=== PATIENT | male | born 1965 | race Caucasian/White ===

== ENCOUNTER 2022-03-04 10:43 | Outpatient (CLI) | payer OTHER, SELFPAY ==
--- NOTE | ~2022-03-04 | XR_ITS ---
XR abdomen/kub 1V 03/04/2022 11:15 Indication: Renal stone Procedure: KUB Comparison: CT dated 03/04/2022 Findings: There are bilateral renal stones, largest in the right renal pelvis. Bowel gas pattern nono bstructive. No definite urolithiasis. No acute osseous abnormality. Impression: 1: Bilateral nephrolithiasis. Reviewed, dictated and finalized at location B. L VALET ATTENDANT Impression: 1: Bilateral nephrolithiasis.
--- NOTE | ~2022-03-04 | CT_ITS ---
EXAMINATION: CT abdomen pelvis wo con DATE: 03/04/2022 11:09 INDICATION: Renal stones TECHNIQUE: Computed tomography (CT) of the abdomen and pelvis was performed without intravenous contr ast. The dose-length product was 424.03 mGy-cm. Automated exposure control and iterative reconstructi on technique were employed. COMPARISON: None. FINDINGS: Right lower lobe dependent atelectasis. Heart size normal. No significant pleural or perica rdial effusion. There are bilateral renal stones, largest in the right renal pelvis measuring 16 x 12 mm. There is dilated right upper pole calyx. There is calcified granulomas of the spleen. There is layering high density material in the gallbladd er which may represent stones or sludge. The pancreas, adrenal glands are unremarkable. Nonobstructiv e bowel gas pattern. There is a fat-containing umbilical hernia. Colonic diverticulosis without evide nce for diverticulitis. Normal appendix. No lymphadenopathy. IMPRESSION: 1. Bilateral nephrolithiasis with dilation of the right upper pole calyx. 2: Dependent high density material in the gallbladder which may represent stones or sludge. Reviewed, dictated and finalized at location A. CAL EDUCATION COORDINATOR IMPRESSION: 1. Bilateral nephrolithiasis with dilation of the right upper pole calyx. 2: Dependent high density material in the gallbladder which may represent stone s or sludge.
== END 2022-03-04 10:44 | disposition home or self-care (01) ==
PROVIDERS: PCP Internal Medicine; Visit Provider Urology
DX: N20.0 Calculus of kidney (principal)
CPT/HCPCS: 74018; 74176

== ENCOUNTER 2022-04-15 15:23 | Outpatient (CLI) | payer OTHER, SELFPAY ==
[2022-04-15 16:02] LABS: INR 1.1; Prothrombin Time 13.3 Seconds (11.1-14.7)
[2022-04-15 16:03] LABS: Partial Thromboplastin Time 27.6 SECONDS (22.3-36.8)
== END 2022-04-15 15:24 | disposition home or self-care (01) ==
PROVIDERS: PCP Internal Medicine; Visit Provider Urology
DX: N20.0 Calculus of kidney (principal); Z01.818 Encounter for other preprocedural examination
CPT/HCPCS: 36415; 85610; 85730; 87086

== ENCOUNTER 2022-04-24 01:07 | Day surgery (SDC) | payer OTHER, SELFPAY ==
[2022-04-10 09:22] VITALS: BMI 32.1
--- NOTE | 2022-04-10 09:26 | PC.NURSE ---
Report to the Outpatient Waiting Room, entrance under the green pavilion located off [facility], at time 6:00 on date 04/24/22. Planned Procedure Time: 7:30. Time changes happen often and if your time is changed the preop area will call you the afternoon before. - You and your visitor will be asked to self-screen and do not enter if you have any COVID symptoms. - Only one visitor is requested with a max of two and NO children visitors are allowed at this time. - The patient visitor may be requested to leave or wait in car when not with patient due to distancing restrictions. - A mask is REQUIRED within the hospital. Patients may have clear liquids (water, carbonated beverages, clear teas, apple juice) until 3 hours prior to surgery with a maximum of 20 ounces. - No food from midnight until time of surgery Take the following medications with a SIP of water the morning of surgery: N/A Medications to discontinue per physician: N/A Date to take last dose: N/A Please no make-up, nail greenlandic, hairspray, perfume, deodorant, or body powder the day of surgery. No jewelry (including any body piercings) or valuables the day of surgery, leave them at home. Please take a shower or bath the night before, or the morning of, surgery with an antibacterial soap. Wear comfortable, loose fitting clothing. - Jewelry must be removed prior to entering the operating room. Rings and piercings that are not removed may be cut off. - The hospital will not accept responsibility for valuables. - Please leave all valuables, including medications, at home the day of surgery. If you are going home after surgery, a licensed gas truck driver must drive you home. - NO public transportation without another adult if you receive anesthesia. - We recommend that an adult stay with you for 24 hours following discharge. - We also recommend that you do not drive, make important decision, drink alcoholic beverages, or take any drugs that were not prescribed by your health care provider for at least 24 hours after your discharge time. For Pediatric surgeries, we recommend two adults accompany the child home. Follow any additional instructions given to you from your surgeon. If you or anyone in your household have experienced Covid symptoms in the past week, please notify your surgeon or the nurse liaison at the phone number below for possible testing. Telephone instructions given to PT - MACKENZIE HERNANDEZ and asked if any additional questions and then verbalized understanding. Patient advised to call surgeon office or pre surgery nurse liaison [phone] if any additional questions.
--- NOTE | 2022-04-20 07:17 | PM.HPGS ---
History of Present Illness History of Present Illness Consent: Risks, benefits, and alternatives have been discussed and questions answered. Patient agrees to proceed with procedure. Chief complaint: Right Renal Kidney Stones Narrative: Cheko Nolen is a 56 year old male recently evaluated for micro hematuria. He has a history of urolithiasis. Imaging demonstrates bilateral renal calculi, larger on the right. After discussion of therapeutic options including percutaneous nephrolithotomy endoscopic stone extraction and ESWL he has elected to proceed with the latter. He is aware this may require multiple procedures. He is aware of the risk of ESWL including, but not limited to, adverse cardiopulmonary events, perinephric hematoma and need for additional procedures. Review of Systems Cardiovascular: Cardiovascular: Denies chest pain, Denies lightheadedness, Denies palpitations and Denies dyspnea Respiratory: Respiratory: Denies dyspnea Gastrointestinal: Gastrointestinal: Denies diarrhea, Denies nausea and Denies vomiting Genitourinary: Genitourinary: Denies hematuria and Denies dysuria Endocrine: Endocrine: Denies palpitations FOR[facility] Social History Social History Smoking status: Never smoker Alcohol intake: current Alcohol use details: 2/MONTH Substance use: never Substance use type: does not use Spiritual care concerns: No Meds Home Medications and Allergies Home Medications Medication Instructions Recorded Confirmed Type No Home Medications 04/10/22 04/10/22 History Allergies Allergy/AdvReac Type Severity Reaction Status Date / Time No Known Allergies Allergy Unverified 04/10/22 09:21 Exam Const: General: no acute distress Resp: Effort & Inspection: normal respiratory effort GI: Inspection: non-distended GI Palp: No abdominal tenderness and No Guarding due to palpation present (GI) Auscultation: normal bowel sounds Assessment and Plan Assessment and plan (1) Bilateral renal stones: Code(s): N20.0 - Calculus of kidney Status: Acute Assessment and Plan: Cystoscopy, right ureteral stent placement, right ESWL
[2022-04-24] VITALS (9 sets, daily range): BP systolic 122–156; BP diastolic 83–101; PULSE 60–90; RESP 13–18; TEMP 36.2–36.6; O2SAT 97–100
--- NOTE | ~2022-04-24 | XR_ITS ---
EXAMINATION: XR abdomen/kub 1V DATE: 04/24/2022 06:20 INDICATION: Kidney stone. TECHNIQUE: A supine view of the abdomen on 2 radiographs was obtained. COMPARISON: CT abdomen and pelvis 03/04/2022 FINDINGS: There are no dilated loops of bowel. There are at least 2 stones in right kidney with the l arger measuring 2.7 cm. There are 2 mm and 5 mm stones in left kidney. IMPRESSION: 1. Bilateral kidney stones. Reviewed, dictated and finalized at location A. CIENCY MANAGER IMPRESSION: 1. Bilateral kidney stones.
--- NOTE | 2022-04-24 06:43 | P.PNAN_ITS ---
Anes - Initial Pre Proc Eval Procedure: Operation Date: 04/24/22 07:30 Proposed Procedures p Right Extracorporeal Shock Wave Lithotripsy - Cheko Rucker MD s Cystoscopy with Right Stent Placement - Cheko Rucker MD Date/Time: 04/24/22 06:43 Surgeon: Cheko Rucker MD Pre Op Diagnosis: Right Renal Kidney Stones Patient Data Age: 56 Gender: M Height: 1.8 m Weight: 106.7 kg Last Vital Signs Temp 36.6 C 04/24/22 06:31 Pulse 75 04/24/22 06:31 Resp 16 04/24/22 06:31 BP 144/97 H 04/24/22 06:31 Pulse Ox 98 04/24/22 06:31 O2 Del Method Room Air 04/24/22 06:31 Allergies Allergy/AdvReac Type Severity Reaction Status Date / Time No Known Allergies Allergy Unverified 04/24/22 06:36 Home Medications Medication Instructions Recorded Confirmed Type No Home Medications 04/10/22 04/24/22 History Patient hx anesthesia problems: none Family hx anesthesia problems: none Results Review: All pre-operative results and documents have been reviewed as part of the pre- operative evaluation. [facility] Past Medical History Medical History (Updated 04/24/22 @ 06:44 by John Bhatt MD) Obesity AMI (obstructive sleep apnea) Surgical History Surgical History (Updated 04/24/22 @ 06:45 by John Bhatt MD) H/O mastoidectomy Hx of cystoscopy Social History Social History Smoking status: Never smoker Alcohol intake: current Alcohol use details: 2/MONTH Substance use: never Substance use type: does not use Living arrangements: with family Spiritual care concerns: No Anes - Eval Final PreProcedure Day of Procedure 04/24/22 06:43 Patient weight: obese Heart: regular rate and rhythm Lungs: clear to auscultation Airway: Mallampati scale class III Neurological: alert and oriented Last oral intake: >/= 8 hours ASA classification: III Emergent: no Anesthetic plan: proceed Anesthesia type and monitoring: general LMA and standard monitoring Results Review: All pre-operative results and documents have been reviewed as part of the pre- operative evaluation. Informed Consent: The patient's anesthetic plan and its attendant risks and benefits were discussed with the patient/family/POA. Questions were solicited and answers provided to the satisfaction of the patient/family/POA.
[2022-04-24] MEDS: LACTATED RINGERS 1,000 ML 30 ML IV CONT ×2 (06:45→08:24)
--- NOTE | 2022-04-24 06:48 | WPDHPUPDATE1 ---
History and Physical Update Update Date/Time: 04/24/22 06:48 History and Physical has been reviewed, including an updated exam of the patient. There are NO changes in the patient's condition. Risks, benefits, and alternatives have been discussed and questions answered. Patient agrees to proceed with procedure.
[2022-04-24] MEDS: ceFAZolin 2 GM/D5W 50 ML 2 GM/50 ML BAG IVPB (07:27)
--- NOTE | 2022-04-24 08:02 | W.PM.PROC2 ---
Procedure Note - Detailed Date of Procedure 04/24/22 Pre-op Diagnosis Right Kidney Stones Post-op Diagnosis Same Procedure Performed Cysto., right ureteral stent placement and right ESWL Surgeon Cheko Rucker MD Anesthesia General Description of Procedure The patient was brought to the operative suite where he was placed in the supine position on the Dornier lithotripter table. Flexible cystoscopy was undertaken with a 16F flexible cystoscopy. There were no urethral strictures. The prostatic urethra estimated length was 2cm. There was mild obstruction of the prostatic urethra with no median lobe enlargement. The bladder mucosa was normal and there was a single, orthotopic ureteral orifice bilaterally. A 0.035 glidewire was advanced into the right renal pelvis under fluoroscopy. A 4.8F J-J ureteral stent was positioned with the proximal coil in the renal pelvis and the distal coil in the bladder. The patient was then repositioned in the supine position with the focal point of the lithotriptor on a 6-7mm left mid-ureteral calculus. A total of 2500 shocks were delivered at a power setting of 4. There appeared to be good fragmentation of the stone. The patient tolerated the procedure well and was taken to the recovery room in good condition. Estimated Blood Loss 0 Drains No Packing No Pathology None sent Complications No immediate complications Condition Stable
--- NOTE | 2022-04-24 08:46 | SUR.PHASEI ---
0845: Simple mask removed.
[2022-04-24] MEDS: oxyCODONE HCL (*CRX) 5 MG TAB IR PO (09:37)
== END 2022-04-24 10:12 | disposition home or self-care (01) ==
PROVIDERS: PCP Internal Medicine; Visit Provider Urology
PROC: (CPT 50590; principal; 2022-04-24 07:30)
PROC: (CPT 52352; 2022-04-24 07:30)
DX: N20.0 Calculus of kidney (principal); G47.33 Obstructive sleep apnea (adult) (pediatric); E66.9 Obesity, unspecified; Z68.32 Body mass index [BMI] 32.0-32.9, adult
CPT/HCPCS: 52332; 50590; 36415; 74018; 85610; 85730; 87086; A9270; C1769; C2617; J0690; J1100; J2250; J2370; J2405; J2704; J3010; J7030; J7120

== ENCOUNTER 2022-05-18 15:46 | Outpatient (CLI) | payer OTHER, SELFPAY ==
--- NOTE | ~2022-05-18 | XR_ITS ---
EXAMINATION: XR abdomen/kub 1V DATE: 05/18/2022 16:09 INDICATION: Calculus of kidney. TECHNIQUE: A supine view of the abdomen on 2 radiographs was obtained. COMPARISON: CT abdomen and pelvis 03/04/2022, abdomen radiographs 04/24/2022 FINDINGS: There are no dilated loops of bowel. There are 3 stones in left kidney measuring up to 5 mm . There are multiple stones or clusters of stones in right kidney measuring up to 13 mm. There are in numerable stones in the right ureter. There is a right internal ureteral stent in expected position. IMPRESSION: 1. Stones in the kidneys and right ureter with right internal ureteral stent in expected position. Reviewed, dictated and finalized at location A. BICS TEACHER
== END 2022-05-18 15:47 | disposition home or self-care (01) ==
LOC: ANHIMG 15:49
PROVIDERS: PCP Internal Medicine; Visit Provider Urology
DX: N20.2 Calculus of kidney with calculus of ureter (principal)
CPT/HCPCS: 74018

== ENCOUNTER 2022-06-02 06:45 | Outpatient (CLI) | payer OTHER, SELFPAY ==
[2022-06-02 07:51] LABS: Partial Thromboplastin Time 27.4 SECONDS (22.3-36.8)
== END 2022-06-02 06:46 | disposition home or self-care (01) ==
LOC: ANHLAB 06:46
PROVIDERS: PCP Internal Medicine; Visit Provider Urology
DX: N20.0 Calculus of kidney (principal)
CPT/HCPCS: 36415; 85610; 85730; 87086

== ENCOUNTER 2022-06-05 02:59 | Day surgery (SDC) | payer OTHER, SELFPAY ==
[2022-05-25 10:48] VITALS: BMI 32.6
--- NOTE | 2022-05-25 10:50 | PC.NURSE ---
Report to the Outpatient Waiting Room, entrance under the green pavilion located off [facility], at time 9:30 on date 06/05/22. Planned Procedure Time: 11:30. Time changes happen often and if your time is changed the preop area will call you the afternoon before. - You and your visitor will be asked to self-screen and do not enter if you have any COVID symptoms. - Only one visitor is requested with a max of two and NO children visitors are allowed at this time. - The patient visitor may be requested to leave or wait in car when not with patient due to distancing restrictions. - A mask is optional within the hospital at this time. Patients may have clear liquids (water, carbonated beverages, clear teas, apple juice) until 3 hours prior to surgery with a maximum of 20 ounces. - No food from midnight until time of surgery Take the following medications with a SIP of water the morning of surgery: N/A DO NOT STOP ANY OF YOUR OTHER PRESCRIPTION MEDICATIONS PRIOR TO SURGERY EXCEPT THE FOLLOWING Medications to discontinue per physician: N/A Date to take last dose: N/A Please no make-up, nail prydeinig, hairspray, perfume, deodorant, or body powder the day of surgery. No jewelry (including any body piercings) or valuables the day of surgery, leave them at home. Please take a shower or bath the night before, or the morning of, surgery with an antibacterial soap. Wear comfortable, loose fitting clothing. - Jewelry must be removed prior to entering the operating room. Rings and piercings that are not removed may be cut off. - The hospital will not accept responsibility for valuables. - Please leave all valuables, including medications, at home the day of surgery. If you are going home after surgery, a licensed ambulette driver must drive you home. - NO public transportation without another adult if you receive anesthesia. - We recommend that an adult stay with you for 24 hours following discharge. - We also recommend that you do not drive, make important decision, drink alcoholic beverages, or take any drugs that were not prescribed by your health care provider for at least 24 hours after your discharge time. Follow any additional instructions given to you from your surgeon. If you or anyone in your household have experienced Covid symptoms in the past week, please notify your surgeon or the nurse liaison at the phone number below for possible testing. Telephone instructions given to PT - MACKENZIE HERNANDEZ and asked if any additional questions and then verbalized understanding. Patient advised to call surgeon office or pre surgery nurse liaison [phone] if any additional questions.
[2022-06-05] VITALS (7 sets, daily range): BP systolic 118–139; BP diastolic 72–89; PULSE 72–110; RESP 16–20; TEMP 36.4–36.8; O2SAT 97–100
--- NOTE | ~2022-06-05 | XR_ITS ---
XR abdomen/kub 1V 06/05/2022 09:45 Indication: ESWL. Renal stones. Procedure: KUB Comparison: Comparison to multiple prior studies sequentially, with oldest reviewed study dated 04/2014. Findings: Stable right renal and ureteral stones. Right internal ureteral stent in expected position. No pattern is nonobstructive. There is a left renal stone. No acute osseous abnormality. Impression: 1: Stable bilateral renal and left ureteral stones with right internal ureteral stent in expected pos ition. Reviewed, dictated and finalized at location B. HER ASSISTANT Impression: 1: Stable bilateral renal and left ureteral stones with right internal ureteral stent in expected position.
--- NOTE | 2022-06-05 06:55 | WPDHPUPDATE1 ---
History and Physical Update Update Date/Time: 06/05/22 06:55 History and Physical has been reviewed, including an updated exam of the patient. There are NO changes in the patient's condition. Risks, benefits, and alternatives have been discussed and questions answered. Patient agrees to proceed with procedure.
[2022-06-05] MEDS: LACTATED RINGERS 1,000 ML 30 ML IV CONT (10:00)
--- NOTE | 2022-06-05 10:13 | P.PNAN_ITS ---
Anes - Initial Pre Proc Eval Procedure: Operation Date: 06/05/22 11:30 Proposed Procedures p Repeat Right Extracorporeal Shock Wave Lithotripsy - Cheko Rucker MD Date/Time: 06/05/22 10:13 Surgeon: Cheko Rucker MD Pre Op Diagnosis: right renal and ureteral stones Patient Data Age: 56 Gender: M Height: 1.8 m Weight: 106.2 kg Allergies Allergy/AdvReac Type Severity Reaction Status Date / Time No Known Allergies Allergy Unverified 05/25/22 10:47 Home Medications Medication Instructions Recorded Confirmed Type No Home Medications 05/25/22 05/25/22 History Patient hx anesthesia problems: none Family hx anesthesia problems: none Results Review: All pre-operative results and documents have been reviewed as part of the pre- operative evaluation. [facility] Past Medical History Medical History Obesity AMI (obstructive sleep apnea) Surgical History Surgical History H/O mastoidectomy Hx of cystoscopy Social History Social History Smoking status: Never smoker Alcohol intake: current Alcohol use details: 2/MONTH Substance use: never Substance use type: does not use Living arrangements: with family Spiritual care concerns: No Anes - Eval Final PreProcedure Day of Procedure 06/05/22 10:13 Patient weight: obese Heart: regular rate and rhythm Lungs: clear to auscultation Airway: Mallampati scale class III Neurological: alert and oriented Last oral intake: >/= 8 hours ASA classification: III Emergent: no Anesthetic plan: proceed Anesthesia type and monitoring: general LMA and standard monitoring Results Review: All pre-operative results and documents have been reviewed as part of the pre- operative evaluation. Informed Consent: The patient's anesthetic plan and its attendant risks and benefits were discussed with the patient/family/POA. Questions were solicited and answers provided to the satisfaction of the patient/family/POA.
[2022-06-05] MEDS: ceFAZolin 2 GM/D5W 50 ML 2 GM/50 ML BAG IVPB (10:52)
--- NOTE | 2022-06-05 11:37 | W.PM.PROC2 ---
Procedure Note - Detailed Date of Procedure 06/05/22 Pre-op Diagnosis Right renal and ureteral stones Post-op Diagnosis Same Procedure Performed Right ESWL Surgeon Cheko Rucker MD Anesthesia General Description of Procedure Patient is brought to the operative suite where he was placed on the Dornier lithotripter table in the supine position. He has a lobe right ureteral Steinstrasse a total of 3000 shocks were delivered power setting up to 5. A proximal into this was closed with kidney so I opted not to treat the kidney. Additionally, stone in the pole calyx is relatively he tolerated this procedure well was taken recovery good condition. Drains No Packing No Pathology None sent Complications No immediate complications Disposition PACU
== END 2022-06-05 13:14 | disposition home or self-care (01) ==
PROVIDERS: PCP Internal Medicine; Visit Provider Urology
PROC: (CPT 50590; principal; 2022-06-05 11:30)
DX: N20.2 Calculus of kidney with calculus of ureter (principal); G47.33 Obstructive sleep apnea (adult) (pediatric); E66.9 Obesity, unspecified; Z68.32 Body mass index [BMI] 32.0-32.9, adult
CPT/HCPCS: 50590; 74018; J0690; J1100; J2250; J2405; J2704; J3010; J7030; J7120

== ENCOUNTER 2022-06-16 13:14 | Outpatient (CLI) | payer OTHER, SELFPAY ==
--- NOTE | ~2022-06-16 | XR_ITS ---
XR abdomen/kub 1V DATE: 06/16/2022 13:31 INDICATION: Kidney stone follow-up. Lithotripsy. TECHNIQUE: 2 supine AP views COMPARISON: June 05, 2022 KUB FINDINGS: Right internal urinary stent is present. Multiple ureteral calcified lithotripsy stone frag ments have progressed further into the distal half of the ureter. At least 2 approximately 3 mm and 6 mm calcified calculi are situated at the very proximal right uret er just distal to the proximal pigtail is situated in the proximal right ureter. There are multiple calcified calculi overlying the right renal pelvis and lower pole of the right kid mariano. There is lesser left renal nephrolithiasis including approximately 4.5 mm mid to lower left renal ernestina cified calculus faint approximately 2 mm lower pole left renal probable calcified calculus. No visceromegaly is evident. The psoas shadows are intact. No bowel obstruction. IMPRESSION: Right ureteral Steinstrasse, multiple right ureteral calcified calculi has progressed fur ther since June 05, 2022, into the distal half of the ureter At least 2 approximately 3 and 6 mm proximal right ureteral calculi Multiple right renal lower pole and renal pelvic calcified calculi Mild left nephrolithiasis Reviewed, dictated and finalized at Location A. Reviewed, dictated and finalized at location B. ER OPERATOR IMPRESSION: Right ureteral Steinstrasse, multiple right ureteral calcified calc aime has progressed further since June 05, 2022, into the distal half of the ureter At least 2 approximately 3 and 6 mm proximal right ureteral calculi Multiple right renal lower pole and renal pelvic calcified calculi Mild left nephrolithiasis
== END 2022-06-16 13:15 | disposition home or self-care (01) ==
LOC: ANHIMG 13:17
PROVIDERS: PCP Internal Medicine; Visit Provider Urology
DX: N20.0 Calculus of kidney (principal)
CPT/HCPCS: 74018

== ENCOUNTER 2022-06-25 15:57 | Outpatient (CLI) | payer OTHER, SELFPAY ==
--- NOTE | ~2022-06-25 | XR_ITS ---
EXAMINATION: XR abdomen/kub 1V DATE: 06/25/2022 16:29 INDICATION: Calculus of kidney. TECHNIQUE: A supine view of the abdomen on 2 radiographs was obtained. COMPARISON: CT abdomen and pelvis 03/04/2022 FINDINGS: There are no dilated loops of bowel. There is a right internal ureteral stent in expected p osition. There are greater than 10 stones in distal right ureter measuring up to 3 mm. There are leas t 3 stones overlying right kidney measuring up to 10 mm. There are 2 stones in left kidney measuring up to 5 mm. IMPRESSION: 1. Stones in the kidneys and distal right ureter with right internal ureteral stent in expected posit ion. Reviewed, dictated and finalized at location A. IMPRESSION: 1. Stones in the kidneys and distal right ureter with right internal ureteral s tent in expected position.
== END 2022-06-25 15:58 | disposition home or self-care (01) ==
LOC: ANHIMG 15:59
PROVIDERS: PCP Internal Medicine; Visit Provider Urology
DX: N20.2 Calculus of kidney with calculus of ureter (principal)
CPT/HCPCS: 74018

== ENCOUNTER 2022-07-14 16:02 | Outpatient (CLI) | payer OTHER, SELFPAY ==
--- NOTE | ~2022-07-14 | XR_ITS ---
EXAMINATION: XR abdomen/kub 1V INDICATION: Calculus of the kidney TECHNIQUE: Supine views of the abdomen were obtained on 2 radiographs. COMPARISON: 06/25/2022 FINDINGS: A right internal ureteral stent is in expected position. There are at least five stones of the right kidney which measure up to 1.4 cm. One previously seen adjacent to the caudal aspect of the stent now appears to be within the renal pelvis. There are at least two nonobstructing stones of the left kidney which measure up to 4 mm. No stones are identified along the right internal ureteral lillian nt. The bowel gas pattern is normal. IMPRESSION: 1. Bilateral nephrolithiasis with right internal ureteral stent in expected position. Reviewed, dictated and finalized at location B. IMPRESSION: 1. Bilateral nephrolithiasis with right internal ureteral stent in expected pos ition.
== END 2022-07-14 16:03 | disposition home or self-care (01) ==
LOC: ANHIMG 16:04
PROVIDERS: PCP Internal Medicine; Visit Provider Urology
DX: N20.0 Calculus of kidney (principal)
CPT/HCPCS: 74018

== ENCOUNTER 2022-07-16 13:00 | Outpatient (CLI) | payer OTHER, SELFPAY ==
--- NOTE | ~2022-07-16 | XR_ITS ---
EXAMINATION: XR abdomen/kub 1V INDICATION: Calculus of the kidney TECHNIQUE: Supine views of the abdomen were obtained on 2 radiographs. COMPARISON: 07/14/2022 FINDINGS: A right internal ureteral stent is in expected position. There appear to be multiple small stones adjacent to the distal aspect of the stent which measure up to 3 mm. Again noted are at least five stones of the right kidney which measure up to 1.4 cm. 2. Stable stones of the left kidney measure up to 4 mm. The bowel gas pattern is normal. IMPRESSION: 1. Right internal ureteral stent in expected position with multiple stones adjacent to the distal asp ect of the stent and stable bilateral nephrolithiasis. Reviewed, dictated and finalized at location B. IMPRESSION: 1. Right internal ureteral stent in expected position with multiple stones cara cent to the distal aspect of the stent and stable bilateral nephrolithiasis.
== END 2022-07-16 13:01 | disposition home or self-care (01) ==
PROVIDERS: PCP Internal Medicine; Visit Provider Urology
DX: N20.0 Calculus of kidney (principal)
CPT/HCPCS: 74018

== ENCOUNTER 2022-07-17 00:54 | Day surgery (SDC) | payer OTHER, SELFPAY ==
[2022-07-13 08:44] VITALS: BMI 32.1
--- NOTE | 2022-07-13 08:47 | PC.NURSE ---
Report to the Outpatient Waiting Room, entrance under the green pavilion located off [facility], at time _1100_ on date _07-17-2022_. Planned Procedure Time: _1pm_. Time changes happen often and if your time is changed the preop area will call you the afternoon before. - You and your visitor will be asked to self-screen and do not enter if you have any COVID symptoms. - Only one visitor is requested with a max of two and NO children visitors are allowed at this time. - The patient visitor may be requested to leave or wait in car when not with patient due to distancing restrictions. - A mask is optional within the hospital at this time. Patients may have clear liquids (water, carbonated beverages, clear teas, apple juice) until 3 hours prior to surgery with a maximum of 20 ounces. - No food from midnight until time of surgery Take the following medications with a SIP of water the morning of surgery: ___None DO NOT STOP ANY OF YOUR OTHER PRESCRIPTION MEDICATIONS PRIOR TO SURGERY ?EXCEPT THE FOLLOWING Medications to discontinue per physician ____None Date to take last dose Please no make-up, nail maltese, hairspray, perfume, deodorant, or body powder the day of surgery. No jewelry (including any body piercings) or valuables the day of surgery, leave them at home. Please take a shower or bath the night before, or the morning of, surgery with an antibacterial soap. Wear comfortable, loose fitting clothing. - Jewelry must be removed prior to entering the operating room. Rings and piercings that are not removed may be cut off. - The hospital will not accept responsibility for valuables. - Please leave all valuables, including medications, at home the day of surgery. If you are going home after surgery, a licensed taxi cab driver must drive you home. - NO public transportation without another adult if you receive anesthesia. - We recommend that an adult stay with you for 24 hours following discharge. - We also recommend that you do not drive, make important decision, drink alcoholic beverages, or take any drugs that were not prescribed by your health care provider for at least 24 hours after your discharge time. Follow any additional instructions given to you from your surgeon. If you or anyone in your household have experienced Covid symptoms in the past week, please notify your surgeon or the nurse liaison at the phone number below for possible testing. Telephone instructions given to __Patient___and asked if any additional questions and then verbalized understanding. Patient advised to call surgeon office or pre surgery nurse liaison [phone] if any additional questions.
--- NOTE | 2022-07-14 06:49 | P.HP_ITS ---
History of Present Illness History of Present Illness Consent: Risks, benefits, and alternatives have been discussed and questions answered. Patient agrees to proceed with procedure. Chief complaint: right kidney calculus Narrative: Cheko Nolen is a 56 year old male Well known to our practice with recent ESWL to a large stone in his rightKidney. He has residual fragments in his right ureter which, as of the time of this dictation, have failed the past. After discussion of options she has elected for ureteroscopy with stone extraction with possible laser lithotripsy retrograde pyelography and stent replacement. He is aware of risk including, but not limited to, need for additional procedures, ureteral injury and need to replace the stent temporarily. Review of Systems Cardiovascular: Cardiovascular: Denies chest pain, Denies lightheadedness, Denies palpitations and Denies dyspnea Respiratory: Respiratory: Denies dyspnea Gastrointestinal: Gastrointestinal: Denies diarrhea, Denies nausea and Denies vomiting Genitourinary: Genitourinary: Denies hematuria and Denies dysuria Endocrine: Endocrine: Denies palpitations PMFSH Past Medical History Medical History Obesity AMI (obstructive sleep apnea) Surgical History Surgical History H/O mastoidectomy Hx of cystoscopy Social History Social History Smoking status: Never smoker Alcohol intake: current Drinks per week: 2 Alcohol use details: 2/MONTH Substance use: never Substance use type: does not use Living arrangements: with family Gender identity (if verbalized by the patient): Male Spiritual care concerns: No Meds Home Medications and Allergies Home Medications Medication Instructions Recorded Confirmed Type No Home Medications 07/13/22 07/13/22 History Allergies Allergy/AdvReac Type Severity Reaction Status Date / Time No Known Allergies Allergy Unverified 07/13/22 08:43 Assessment and Plan Assessment and plan (1) Right ureteral calculus: Code(s): N20.1 - Calculus of ureter Status: Acute Assessment and Plan: * cystoscopy, right ureteroscopy with stone extraction, possible laser lithotripsy, retrograde pyelography and stent replacement
--- NOTE | 2022-07-16 16:36 | P.PNAN_ITS ---
Anes - Initial Pre Proc Eval Procedure: Operation Date: 07/17/22 11:00 Proposed Procedures p Right Extracorporeal Shock Wave Lithotripsy, - Cheko Rucker MD s Cystoscopy with Right Stent Removal - Cheko Rucker MD Date/Time: 07/16/22 16:36 Surgeon: Cheko Rucker MD Pre Op Diagnosis: right kidney calculus Patient Data Age: 56 Gender: M Height: 1.8 m Weight: 104.5 kg Allergies Allergy/AdvReac Type Severity Reaction Status Date / Time No Known Allergies Allergy Unverified 07/13/22 08:43 Home Medications Medication Instructions Recorded Confirmed Type No Home Medications 07/13/22 07/13/22 History Patient hx anesthesia problems: none Family hx anesthesia problems: none Results Review: All pre-operative results and documents have been reviewed as part of the pre- operative evaluation. [facility] Past Medical History Medical History Obesity AMI (obstructive sleep apnea) Surgical History Surgical History H/O mastoidectomy Hx of cystoscopy Social History Social History Smoking status: Never smoker Alcohol intake: current Drinks per week: 2 Alcohol use details: 2/MONTH Substance use: never Substance use type: does not use Living arrangements: with family Gender identity (if verbalized by the patient): Male Spiritual care concerns: No Anes - Eval Final PreProcedure Day of Procedure 07/16/22 16:36 Patient weight: obese Heart: regular rate and rhythm Lungs: clear to auscultation Airway: Mallampati scale class III Neurological: alert and oriented Last oral intake: >/= 8 hours ASA classification: II Emergent: no Anesthetic plan: proceed Anesthesia type and monitoring: general LMA and standard monitoring Results Review: All pre-operative results and documents have been reviewed as part of the pre- operative evaluation. Informed Consent: The patient's anesthetic plan and its attendant risks and benefits were discussed with the patient/family/POA. Questions were solicited and answers provided to the satisfaction of the patient/family/POA.
[2022-07-17] VITALS (9 sets, daily range): BP systolic 134–154; BP diastolic 84–100; PULSE 64–78; RESP 13–24; TEMP 36.4–37; O2SAT 99–100
--- NOTE | 2022-07-17 05:35 | WPDHPUPDATE1 ---
History and Physical Update Update Date/Time: 07/17/22 05:35 History and Physical has been reviewed, including an updated exam of the patient. There are NO changes in the patient's condition. Risks, benefits, and alternatives have been discussed and questions answered. Patient agrees to proceed with procedure.
[2022-07-17 09:37] LABS: Appearance Urine Clear (Clear); Bacteria Urine None Seen /hpf; Bilirubin Urine Negative (Negative); Blood Urine 3+ (Negative); Color Urine Yellow (Yellow); Glucose Urine UA Negative (Negative); Ketones Urine Negative (Negative); Leukocyte Esterase Ur 2+ LEU/UL (Negative); Nitrate Urine Negative (Negative); Non Pathogenic Casts 0-2; Protein Urine Trace mg/dL (Negative); RBC Urine >100 /hpf (0-2); Specific Grav Ur 1.015 (1.001-1.035); Squamous Epithelial Cell Urine None seen /hpf (Few); Urobilinogen Urine 0.2 mg/dL (<2.0)
[2022-07-17 09:42] LABS: Add Urine Microscopic? YES
[2022-07-17 09:56] LABS: Prothrombin Time 12.9 Seconds (11.1-14.7)
[2022-07-17 09:57] LABS: Partial Thromboplastin Time 28.4 SECONDS (22.3-36.8)
[2022-07-17] MEDS: ceFAZolin 2 GM/D5W 50 ML 2 GM/50 ML BAG IVPB (10:47)
[2022-07-17] MEDS: LACTATED RINGERS 1,000 ML 30 ML IV CONT (10:57)
--- NOTE | 2022-07-17 11:06 | W.PM.PROC2 ---
Procedure Note - Detailed Date of Procedure 07/17/22 Pre-op Diagnosis Right kidney calculus Post-op Diagnosis Same Procedure Performed Cystoscopy, right ureteral stent, right ESWL Surgeon Cheko Rucker MD Anesthesia General Description of Procedure Within just a few days of today's planned procedure the patient passed a right ureteral Steinstrasse. Has just a couple residual fragments in his right kidney after initial ESWL for a large stone. After discussion we opted to proceed with right ESWL with simultaneous right stent removal. Cystoscopy was undertaken with a 16 F flexible cystoscope after the and uneventful induction of a general LMA anesthetic. The tip of the stent is grasped with an is removed with ease. A total of 2500 shocks were then delivered to stone fragments in his right kidney. Again there appeared to be excellent fragmentation. He tolerated procedure well was taken recovery room good condition Drains No Packing No Complications No immediate complications Condition Stable
== END 2022-07-17 13:37 | disposition home or self-care (01) ==
PROVIDERS: PCP Internal Medicine; Visit Provider Urology
PROC: (CPT 50590; principal; 2022-07-17 11:00)
PROC: (CPT 52310; 2022-07-17 11:00)
DX: N20.0 Calculus of kidney (principal); G47.33 Obstructive sleep apnea (adult) (pediatric); E66.9 Obesity, unspecified; Z68.32 Body mass index [BMI] 32.0-32.9, adult
CPT/HCPCS: 50590; 52310; 36415; 81001; 85610; 85730; 87086; J0131; J0690; J1100; J2250; J2405; J2704; J3010; J7120

== ENCOUNTER 2022-08-19 07:41 | Outpatient (CLI) | payer OTHER, SELFPAY ==
--- NOTE | ~2022-08-19 | XR_ITS ---
XR abdomen/kub 1V 08/19/2022 07:55 Indication: Renal stones Procedure: KUB Comparison: Comparison to multiple prior studies sequentially, with oldest reviewed study dated 10/2022. Findings: There are multiple bilateral renal stones. Interval removal right internal ureteral stent. Bowel pattern nonobstructive. No calcifications are identified in the expected course of ureters. Impression: 1: Bilateral nephrolithiasis. Reviewed, dictated and finalized at location B. Impression: 1: Bilateral nephrolithiasis.
== END 2022-08-19 07:42 | disposition home or self-care (01) ==
LOC: ANHIMG 07:44
PROVIDERS: PCP Internal Medicine; Visit Provider Urology
DX: N20.0 Calculus of kidney (principal)
CPT/HCPCS: 74018

== ENCOUNTER 2023-02-09 15:12 | Outpatient (CLI) | payer OTHER, SELFPAY ==
--- NOTE | ~2023-02-09 | XR_ITS ---
XR abdomen/kub 1V 02/09/2023 15:27 Indication: Renal stones Procedure: KUB Comparison: Comparison to multiple prior studies sequentially, with oldest reviewed study dated 06/25. Findings: Bowel gas pattern is nonobstructive. There are bilateral renal stones. No acute osseous abn ormality. No stones identified in the expected course of the ureters. Impression: 1: Bilateral nephrolithiasis. Reviewed, dictated and finalized at location A. Impression: 1: Bilateral nephrolithiasis.
== END 2023-02-09 15:13 | disposition home or self-care (01) ==
LOC: ANHIMG 15:16
PROVIDERS: PCP Family Medicine; Visit Provider Urology
DX: N20.0 Calculus of kidney (principal)
CPT/HCPCS: 74018

== ENCOUNTER 2023-02-26 00:55 | Day surgery (SDC) | payer OTHER, SELFPAY ==
--- NOTE | 2023-02-24 07:34 | P.HP_ITS ---
History of Present Illness History of Present Illness Consent: Risks, benefits, and alternatives have been discussed and questions answered. Patient agrees to proceed with procedure. Chief complaint: left kidney stones Narrative: Cheko Nolen is a 57 year old male was known to be a recurrent stone former. Recent surveillance imaging demonstrated bilateral calcified stones. After discussion of options he would like to proceed with bilateral ESWL. Today we will start on the left. He is aware the risk including, but not limited to, hematuria, perinephric hematoma and need for additional procedures. Review of Systems Review of Systems: All systems reviewed & are unremarkable except as noted in HPI and below PMFSH Past Medical History Medical History (Updated 02/10/23 @ 15:46 by Jose E Ferguson MD) Annual physical exam Deviated septum Encounter for screening for malignant neoplasm of prostate History of kidney stones Obesity AMI (obstructive sleep apnea) Otitis media Screening cholesterol level Screening for thyroid disorder Surgical History Surgical History H/O lithotripsy H/O mastoidectomy History of colonoscopy 2016 Hx of cystoscopy Family History Family History Mother Breast cancer Diabetes mellitus Sibling Hypertension Social History Social History Smoking status: Never smoker Alcohol intake: current Drinks per week: 2 Alcohol use details: 2/MONTH Substance use: never Substance use type: does not use Lack of Transportation: No Lack of Food: Never True Current Housing: I Have Housing Concerned About Future Housing: No Difficulty Paying Gas/Electric Bills: No Difficulty Paying for Meds: No Currently Unemployed: No Living arrangements: with family Occupation/Education: occupation 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[employer] Gender identity (if verbalized by the patient): Male Spiritual care concerns: No Agree to blood products: Yes Meds Home Medications and Allergies Home Medications Medication Instructions Recorded Confirmed Type hydrocodone 5 mg-acetaminophen 325 1 - 2 tablet PO Q6H PRN pain #20 07/17/22 Rx mg tablet tabs amoxicillin 875 mg-potassium 1 tablet PO BID #20 tabs 02/02/23 02/02/23 Rx clavulanate 125 mg tablet Allergies Allergy/AdvReac Type Severity Reaction Status Date / Time No Known Allergies Allergy Verified 02/02/23 15:34 Exam Const: General: no acute distress Resp: Effort & Inspection: normal respiratory effort GI: Inspection: non-distended GI Palp: No abdominal tenderness and No Guarding due to palpation present (GI) Auscultation: normal bowel sounds Assessment and Plan Assessment and plan (1) Bilateral renal stones: Code(s): N20.0 - Calculus of kidney Status: Acute Assessment and Plan: * Left ESWL
[2023-02-24 09:32] VITALS: BMI 29.2
--- NOTE | 2023-02-24 09:34 | PC.NURSE ---
Report to the Outpatient Waiting Room, entrance under the green pavilion located off [facility], at time 1100 on date 02/26/23. Planned Procedure Time: 1300. Time changes happen often and if your time is changed the preop area will call you the afternoon before. - You and your visitor will be asked to self-screen and do not enter if you have any COVID symptoms. - A mask is optional within the hospital at this time. Patients may have clear liquids (water, carbonated beverages, clear teas, apple juice) until 3 hours prior to surgery with a maximum of 20 ounces. - No food from midnight until time of surgery Take the following medications with a SIP of water the morning of surgery: N/A DO NOT STOP ANY OF YOUR OTHER PRESCRIPTION MEDICATIONS PRIOR TO SURGERY ?EXCEPT THE FOLLOWING Medications to discontinue per physician: N/A Date to take last dose: N/A Please no make-up, nail serbian, hairspray, perfume, deodorant, or body powder the day of surgery. No jewelry (including any body piercings) or valuables the day of surgery, leave them at home. Please take a shower or bath the night before, or the morning of, surgery with an antibacterial soap. Wear comfortable, loose fitting clothing. - Jewelry must be removed prior to entering the operating room. Rings and piercings that are not removed may be cut off. - The hospital will not accept responsibility for valuables. - Please leave all valuables, including medications, at home the day of surgery. If you are going home after surgery, a licensed party bus driver must drive you home. - NO public transportation without another adult if you receive anesthesia. - We recommend that an adult stay with you for 24 hours following discharge. - We also recommend that you do not drive, make important decision, drink alcoholic beverages, or take any drugs that were not prescribed by your health care provider for at least 24 hours after your discharge time. Follow any additional instructions given to you from your surgeon. If you or anyone in your household have experienced Covid symptoms in the past week, please notify your surgeon or the nurse liaison at the phone number below for possible testing. Telephone instructions given to PT - MACKENZIE HERNANDEZ and asked if any additional questions and then verbalized understanding. Patient advised to call surgeon office or pre surgery nurse liaison [phone] if any additional questions.
[2023-02-26] VITALS (9 sets, daily range): BP systolic 128–151; BP diastolic 81–98; PULSE 59–87; RESP 10–16; TEMP 36.4–36.7; O2SAT 97–100
--- NOTE | ~2023-02-26 | XR_ITS ---
EXAMINATION: XR abdomen/kub 1V DATE: 02/26/2023 11:22 INDICATION: Kidney stone. TECHNIQUE: A supine view of the abdomen on 2 radiographs was obtained. COMPARISON: Abdomen radiographs 02/09/2023, CT abdomen and pelvis 03/04/2022 FINDINGS: There are no dilated loops of bowel. There are approximately 3 stones in right kidney measu ring up to 10 mm. There are 3 stones in left kidney measuring up to 6 mm. IMPRESSION: 1. Bilateral kidney stones. Reviewed, dictated and finalized at location A. 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 Bilateral kidney stones.
--- NOTE | 2023-02-26 06:40 | WPDHPUPDATE1 ---
History and Physical Update Update Date/Time: 02/26/23 06:40 History and Physical has been reviewed, including an updated exam of the patient. There are NO changes in the patient's condition. Risks, benefits, and alternatives have been discussed and questions answered. Patient agrees to proceed with procedure.
[2023-02-26] MEDS: LACTATED RINGERS 1,000 ML 30 ML IV CONT ×2 (11:30→13:13)
--- NOTE | 2023-02-26 12:17 | WPDANESEPPF ---
Anes - Initial Pre Proc Eval Procedure: Operation Date: 02/26/23 13:00 Proposed Procedures p Left Extracorporeal Shock Wave Lithotripsy - Cheko Rucker MD Date/Time: 02/26/23 12:17 Surgeon: Cheko Rucker MD Pre Op Diagnosis: left kidney stones Patient Data Age: 57 Gender: M Height: 1.8 m Weight: 95.25 kg Allergies Allergy/AdvReac Type Severity Reaction Status Date / Time No Known Allergies Allergy Verified 02/25/23 10:59 Home Medications Medication Instructions Recorded Confirmed Type No Home Medications 02/24/23 02/25/23 History Laboratory Tests 02/26/23 11:54 PT Pending INR Pending APTT Pending Urine Color Pending Urine Appearance Pending Urine pH Pending Ur Specific [place] Pending Urine Protein Pending Urine Glucose (UA) Pending Urine Ketones Pending Ur Blood (Man) Pending Urine Nitrate Pending Urine Bilirubin Pending Urine Urobilinogen Pending Leukocyte Esterase Rfl Pending Patient hx anesthesia problems: none Family hx anesthesia problems: none Results Review: All pre-operative results and documents have been reviewed as part of the pre-operative evaluation. [facility] Past Medical History Medical History Annual physical exam Deviated septum Encounter for screening for malignant neoplasm of prostate History of kidney stones Obesity AMI (obstructive sleep apnea) Otitis media Screening cholesterol level Screening for thyroid disorder Surgical History Surgical History H/O lithotripsy H/O mastoidectomy History of colonoscopy 2016 Hx of cystoscopy Family History Family History Mother Breast cancer Diabetes mellitus Sibling Hypertension Social History Social History Smoking status: Never smoker Alcohol intake: current Drinks per week: 2 Alcohol use details: RARE Substance use: never Substance use type: does not use Lack of Transportation: No Lack of Food: Never True Current Housing: I Have Housing Concerned About Future Housing: No Difficulty Paying Gas/Electric Bills: No Difficulty Paying for Meds: No Currently Unemployed: No Living arrangements: with family Occupation/Education: occupation 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[employer] Gender identity (if verbalized by the patient): Male Spiritual care concerns: No Agree to blood products: Yes Anes - Eval Final PreProcedure Day of Procedure 02/26/23 12:17 Patient weight: overweight Heart: regular rate and rhythm Lungs: clear to auscultation Airway: Mallampati scale class III Neurological: alert and oriented Last oral intake: >/= 8 hours ASA classification: III Emergent: no Anesthetic plan: proceed Anesthesia type and monitoring: general LMA and standard monitoring Results Review: All pre-operative results and documents have been reviewed as part of the pre-operative evaluation. Informed Consent: The patient's anesthetic plan and its attendant risks and benefits were discussed with the patient/family/POA. Questions were solicited and answers provided to the satisfaction of the patient/family/POA.
[2023-02-26 12:19] LABS: Partial Thromboplastin Time 28.2 SECONDS (22.3-36.8); Prothrombin Time 13.9 Seconds (11.1-14.7)
[2023-02-26] MEDS: ceFAZolin 2 GM/D5W 50 ML 2 GM/50 ML BAG IVPB (12:34)
--- NOTE | 2023-02-26 12:41 | W.PM.PROC2 ---
Procedure Note - Detailed Date of Procedure 02/26/23 Pre-op Diagnosis Left kidney stones Post-op Diagnosis Same Procedure Performed The patient was brought to the operative suite where he was placed in the supine position on the Dornier lithotripsy table. The focal point of the lithotripter was placed at a 6-7mm left lower pole calculus. A total of 2500 shocks were delivered at a power setting of 4. There appeared to be good fragmentation of the stone. The patient tolerated the procedure well and was taken to the recovery room in good condition. Surgeon Cheko Rucker MD Anesthesia General Description of Procedure The patient was brought to the operative suite where he was placed in the supine position on the Dornier lithotripsy table. The focal point of the lithotripter was placed at a 6-7mm left lower pole calculus. A total of 2500 shocks were delivered at a power setting of 4. There appeared to be good fragmentation of the stone. The patient tolerated the procedure well and was taken to the recovery room in good condition. Drains No Packing No Pathology None sent Complications No immediate complications Condition Stable Disposition PACU
[2023-02-26 12:52] LABS: Add Urine Microscopic? YES; Appearance Urine Clear (Clear); Bacteria Urine None Seen /hpf; Bilirubin Urine Negative (Negative); Blood Urine 2+ (Negative); Color Urine Yellow (Yellow); Glucose Urine UA Negative (Negative); Ketones Urine Negative (Negative); Leukocyte Esterase Ur Trace LEU/UL (Negative); Mucus Urine Present /lpf; Nitrate Urine Negative (Negative); Non Pathogenic Casts 0-2; Protein Urine Trace mg/dL (Negative); RBC Urine 21-50 /hpf (0-2); Squamous Epithelial Cell Urine None seen /hpf (Few); Urobilinogen Urine 0.2 mg/dL (<2.0)
== END 2023-02-26 15:00 | disposition home or self-care (01) ==
PROVIDERS: PCP Family Medicine; Visit Provider Urology
PROC: (CPT 50590; principal; 2023-02-26 13:00)
DX: N20.0 Calculus of kidney (principal); G47.33 Obstructive sleep apnea (adult) (pediatric)
CPT/HCPCS: 50590; 36415; 74018; 81001; 85610; 85730; 87086; J0690; J1100; J2250; J2405; J2704; J3010; J7120

== ENCOUNTER 2023-03-12 01:22 | Day surgery (SDC) | payer OTHER, SELFPAY ==
[2023-02-25 11:01] VITALS: BMI 29.2
--- NOTE | 2023-02-25 11:03 | PC.NURSE ---
Report to the Outpatient Waiting Room, entrance under the green pavilion located off [facility], at time 6:30 on date 03/12/23. Planned Procedure Time: 8:30. Time changes happen often and if your time is changed the preop area will call you the afternoon before. - You and your visitor will be asked to self-screen and do not enter if you have any COVID symptoms. - A mask is optional within the hospital at this time. Patients may have clear liquids (water, carbonated beverages, clear teas, apple juice) until 3 hours prior to surgery (5:30) with a maximum of 20 ounces. - No food from midnight until time of surgery Take the following medications with a SIP of water the morning of surgery: N/A DO NOT STOP ANY OF YOUR OTHER PRESCRIPTION MEDICATIONS PRIOR TO SURGERY ?EXCEPT THE FOLLOWING Medications to discontinue per physician: N/A Date to take last dose: N/A Please no make-up, nail surinamese, hairspray, perfume, deodorant, or body powder the day of surgery. No jewelry (including any body piercings) or valuables the day of surgery, leave them at home. Please take a shower or bath the night before, or the morning of, surgery with an antibacterial soap. Wear comfortable, loose fitting clothing. - Jewelry must be removed prior to entering the operating room. Rings and piercings that are not removed may be cut off. - The hospital will not accept responsibility for valuables. - Please leave all valuables, including medications, at home the day of surgery. If you are going home after surgery, a licensed sprinkling truck driver must drive you home. - NO public transportation without another adult if you receive anesthesia. - We recommend that an adult stay with you for 24 hours following discharge. - We also recommend that you do not drive, make important decision, drink alcoholic beverages, or take any drugs that were not prescribed by your health care provider for at least 24 hours after your discharge time. Follow any additional instructions given to you from your surgeon. If you or anyone in your household have experienced Covid symptoms in the past week, please notify your surgeon or the nurse liaison at the phone number below for possible testing. Telephone instructions given to PT - MACKENZIE HERNANDEZ and asked if any additional questions and then verbalized understanding. Patient advised to call surgeon office or pre surgery nurse liaison [phone] if any additional questions.
--- NOTE | 2023-03-10 07:25 | P.HP_ITS ---
History of Present Illness History of Present Illness Consent: Risks, benefits, and alternatives have been discussed and questions answered. Patient agrees to proceed with procedure. Chief complaint: right kindey stones Narrative: Cheko Nolen is a 57 year old male with a long history of recurrent urolithiasis. Imaging recently demonstrated small to moderate bilateral renal stones. He is elected for bilateral ESWL. He is recently undergone left ESWL a nd now presents for treatment to the stones in his right kidney. He is aware the risks, as before, including perinephric hematoma hematuria need for additional procedures. Review of Systems Review of Systems: All systems reviewed & are unremarkable except as noted in HPI and below PMFSH Past Medical History Medical History Annual physical exam Deviated septum Encounter for screening for malignant neoplasm of prostate History of kidney stones Obesity AMI (obstructive sleep apnea) Otitis media Screening cholesterol level Screening for thyroid disorder Surgical History Surgical History H/O lithotripsy H/O mastoidectomy History of colonoscopy 2016 Hx of cystoscopy Family History Family History Mother Breast cancer Diabetes mellitus Sibling Hypertension Social History Social History Smoking status: Never smoker Alcohol intake: current Drinks per week: 2 Alcohol use details: RARE Substance use: never Substance use type: does not use Lack of Transportation: No Lack of Food: Never True Current Housing: I Have Housing Concerned About Future Housing: No Difficulty Paying Gas/Electric Bills: No Difficulty Paying for Meds: No Currently Unemployed: No Living arrangements: with family Occupation/Education: occupation 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[employer] Gender identity (if verbalized by the patient): Male Spiritual care concerns: No Agree to blood products: Yes Meds Home Medications and Allergies Home Medications Medication Instructions Recorded Confirmed Type hydrocodone 5 mg-acetaminophen 325 1 - 2 tablet PO Q6H PRN pain #20 02/26/23 Rx mg tablet tabs Allergies Allergy/AdvReac Type Severity Reaction Status Date / Time No Known Allergies Allergy Verified 02/26/23 12:50 Exam Const: General: no acute distress Resp: Effort & Inspection: normal respiratory effort GI: Inspection: non-distended GI Palp: No abdominal tenderness and No Guarding due to palpation present (GI) Auscultation: normal bowel sounds Assessment and Plan Assessment and plan (1) Bilateral renal stones: Code(s): N20.0 - Calculus of kidney Status: Acute Assessment and Plan: * Right ESWL
--- NOTE | 2023-03-11 15:25 | P.PNAN_ITS ---
Anes - Initial Pre Proc Eval Procedure: Operation Date: 03/12/23 08:30 Proposed Procedures p Right Extracorporeal Shock Wave Lithotripsy - Cheko Rucker MD Date/Time: 03/11/23 15:25 Surgeon: Cheko Rucker MD Pre Op Diagnosis: right kindey stones Patient Data Age: 57 Gender: M Height: 1.8 m Weight: 95.25 kg Allergies Allergy/AdvReac Type Severity Reaction Status Date / Time No Known Allergies Allergy Verified 03/12/23 07:31 Home Medications Medication Instructions Recorded Confirmed Type hydrocodone 5 mg-acetaminophen 325 1 - 2 tablet PO Q6H PRN pain #20 02/26/23 Rx mg tablet tabs Patient hx anesthesia problems: none Family hx anesthesia problems: none Results Review: All pre-operative results and documents have been reviewed as part of the pre-operative evaluation. COUNTS INCLUDE 234 BEDS AT THE [facility] Past Medical History Medical History Annual physical exam Deviated septum Encounter for screening for malignant neoplasm of prostate History of kidney stones Obesity AMI (obstructive sleep apnea) Otitis media Screening cholesterol level Screening for thyroid disorder Surgical History Surgical History H/O lithotripsy H/O mastoidectomy History of colonoscopy 2016 Hx of cystoscopy Family History Family History Mother Breast cancer Diabetes mellitus Sibling Hypertension Social History Social History Smoking status: Never smoker Alcohol intake: current Drinks per week: 2 Alcohol use details: RARE Substance use: never Substance use type: does not use Lack of Transportation: No Lack of Food: Never True Current Housing: I Have Housing Concerned About Future Housing: No Difficulty Paying Gas/Electric Bills: No Difficulty Paying for Meds: No Currently Unemployed: No Living arrangements: with family Occupation/Education: occupation Additional occupation/education comments: [employer] Gender identity (if verbalized by the patient): Male Spiritual care concerns: No Agree to blood products: Yes Anes - Eval Final PreProcedure Day of Procedure 03/11/23 15:25 Patient weight: overweight Heart: regular rate and rhythm Lungs: clear to auscultation Airway: Mallampati scale class II Neurological: alert and oriented Last oral intake: >/= 8 hours ASA classification: III Emergent: no Anesthetic plan: proceed Anesthesia type and monitoring: general LMA and standard monitoring Results Review: All pre-operative results and documents have been reviewed as part of the pre-operative evaluation. Informed Consent: The patient's anesthetic plan and its attendant risks and benefits were discussed with the patient/family/POA. Questions were solicited and answers provided to the satisfaction of the patient/family/POA.
[2023-03-12] VITALS (8 sets, daily range): BP systolic 123–135; BP diastolic 63–94; PULSE 60–72; RESP 12–20; TEMP 36.4–36.6; O2SAT 98–100
--- NOTE | ~2023-03-12 | XR_ITS ---
Supine and upright views of the abdomen Clinical history: Renal stone COMPARISON: 02/26/2023 Findings: Bowel gas pattern is nonspecific. No evidence for obstruction or free air. Bilateral nephro lithiasis essentially unchanged. Osseous structures are intact. Impression: Stable bilateral nephrolithiasis. Reviewed, dictated and finalized at [facility]. SIFIER TENDER Impression: Stable bilateral nephrolithiasis.
--- NOTE | 2023-03-12 06:31 | WPDHPUPDATE1 ---
History and Physical Update Update Date/Time: 03/12/23 06:31 History and Physical has been reviewed, including an updated exam of the patient. There are NO changes in the patient's condition. Risks, benefits, and alternatives have been discussed and questions answered. Patient agrees to proceed with procedure.
[2023-03-12] MEDS: LACTATED RINGERS 1,000 ML 30 ML IV CONT (07:51)
[2023-03-12] MEDS: ceFAZolin 2 GM/D5W 50 ML 2 GM/50 ML BAG IVPB (08:26)
--- NOTE | 2023-03-12 08:44 | W.PM.PROC2 ---
Procedure Note - Detailed Date of Procedure 03/12/23 Pre-op Diagnosis Right kidney stones Post-op Diagnosis Same Procedure Performed Right ESWL Surgeon Cheko Rucker MD Anesthesia General Description of Procedure The patient was brought to the operative suite where he was placed in the supine position on the Dornier lithotripsy table. The focal point of the lithotripter was placed at a 5-6mm right renal calculus. A total of 2500 shocks were delivered at a power setting of 4. There appeared to be good fragmentation of the stone. The patient tolerated the procedure well and was taken to the recovery room in good condition. Drains No Packing No Pathology None sent Complications No immediate complications
== END 2023-03-12 10:45 | disposition home or self-care (01) ==
PROVIDERS: PCP Family Medicine; Visit Provider Urology
PROC: (CPT 50590; principal; 2023-03-12 08:30)
DX: N20.0 Calculus of kidney (principal); G47.33 Obstructive sleep apnea (adult) (pediatric); Z87.442 Personal history of urinary calculi; Z80.3 Family history of malignant neoplasm of breast; Z79.891 Long term (current) use of opiate analgesic
CPT/HCPCS: 50590; 74018; J0690; J1100; J2250; J2405; J2704; J3010; J7120

== ENCOUNTER 2023-03-23 16:35 | Outpatient (CLI) | payer OTHER, SELFPAY ==
--- NOTE | ~2023-03-23 | XR_ITS ---
EXAM: XR abdomen/kub 1V DATE: 03/23/2023 16:52 HISTORY: N20.0 - Calculus of kidney, post op 1 1/2 weeks ago . COMPARISON: 03/12/2023. FINDINGS: Clear lung bases. Normal bowel gas pattern. No organomegaly. Multiple bilateral renal calc ifications, different in number and/or morphology. The right inferior pole calcification is smaller a nd appears fragmented. The smallest of 3 previously identified left renal calcifications is no longer visualized. The remaining calcifications are unchanged. Somewhat triangular hyperdensity over the mi dline pelvis may represent prostatic calcification or artifact from fecal material. Regional bones an d soft tissues normal for age. IMPRESSION: Bilateral nephrolithiasis, with interval change. This may represent interval procedure, o r passage of stones. Correlate with clinical history. CT the abdomen and pelvis may be helpful for fu rther evaluation. Reviewed, dictated and finalized at [facility]OOK IMPRESSION: Bilateral nephrolithiasis, with interval change. This may represent interval procedure, or passage of stones. Correlate with clinical history. CT the abdomen and pelvis may be helpful for further evaluation.
== END 2023-03-23 16:36 | disposition home or self-care (01) ==
PROVIDERS: PCP Family Medicine; Visit Provider Urology
DX: N20.0 Calculus of kidney (principal)
CPT/HCPCS: 74018

== ENCOUNTER 2023-12-16 09:28 | Outpatient (CLI) | payer OTHER, SELFPAY ==
[2023-12-16 10:16] LABS: INR 1.1; Prothrombin Time 14.2 Seconds (11.1-14.7)
[2023-12-16 10:17] LABS: Add Urine Microscopic? YES; Appearance Urine Clear (Clear); Bacteria Urine None Seen /hpf; Bilirubin Urine Negative (Negative); Blood Urine Non-Hemolyzed Trace (Negative); Color Urine Yellow (Yellow); Glucose Urine UA Negative (Negative); Ketones Urine Trace mg/dL (Negative); Leukocyte Esterase Ur Trace LEU/UL (Negative); Nitrate Urine Negative (Negative); Non Pathogenic Casts 0-2; Partial Thromboplastin Time 27.9 Seconds (22.3-36.8); Protein Urine 1+ mg/dL (Negative); Specific Grav Ur 1.026 (1.001-1.035); Squamous Epithelial Cell Urine None Seen /hpf (Few); Urobilinogen Urine 0.2 mg/dL (<2.0); pH Urine 5.5 (5.0-9.0)
== END 2023-12-16 09:29 | disposition home or self-care (01) ==
PROVIDERS: PCP Nurse Practitioner Family; Visit Provider Urology
DX: Z01.818 Encounter for other preprocedural examination (principal); N20.1 Calculus of ureter
CPT/HCPCS: 36415; 81001; 85610; 85730; 87086

== ENCOUNTER 2023-12-17 00:37 | Day surgery (SDC) | payer OTHER, SELFPAY ==
[2023-12-15 12:47] VITALS: BMI 31.4
--- NOTE | 2023-12-15 12:53 | PC.NURSE ---
Report to the Outpatient Waiting Room, entrance under the green pavilion located off [facility], at time _1100_ on date _[phone]_. Planned Procedure Time: _1pm_.? Time changes happen often and if your time is changed the preop area will call you the afternoon before. - You and your visitor will be asked to self-screen and do not enter if you have any COVID symptoms. Please call surgeon if you need to reschedule. - A mask is optional within the hospital at this time. Patients may have clear liquids (water, carbonated beverages, clear teas, apple juice) until 3 hours prior to surgery with a maximum of 20 ounces. - No food from midnight until time of surgery and no smoking Take only the following medications with a SIP of water on the morning of surgery: ___None DO NOT STOP ANY OF YOUR OTHER PRESCRIPTION MEDICATIONS PRIOR TO SURGERY EXCEPT THE FOLLOWING Medications to discontinue per physician None Date to take last dose Please no make-up, nail greenlandic, hairspray, perfume, deodorant, or body powder the day of surgery.? No jewelry (including any body piercings) or valuables the day of surgery, leave them at home.? Please take a shower or bath the night before, or the morning of, surgery with an antibacterial soap.? Wear comfortable, loose fitting clothing.? - Jewelry must be removed prior to entering the operating room.? Rings and piercings that are not removed may be cut off. - The hospital will not accept responsibility for valuables.? - Please leave all valuables, including medications, at home the day of surgery. If you are going home after surgery, a licensed hole digger truck driver must drive you home.? - NO public transportation without another adult if you receive anesthesia. - We recommend that an adult stay with you for 24 hours following discharge. - We also recommend that you do not drive, make important decision, drink alcoholic beverages, or take any drugs that were not prescribed by your health care provider for at least 24 hours after your discharge time. Follow any additional instructions given to you from your surgeon. Telephone instructions given to Deyvi_and asked if any additional questions and then verbalized understanding. Patient advised to call surgeon office or pre surgery nurse liaison [phone] if any additional questions.
[2023-12-17] VITALS (8 sets, daily range): BP systolic 144–164; BP diastolic 90–100; PULSE 53–75; RESP 16–20; TEMP 36.1–36.6; O2SAT 98–100
--- NOTE | ~2023-12-17 | XR_ITS ---
XR abdomen/kub 1V 12/17/2023 11:03 Indication: Renal stones Procedure: KUB Comparison: 03/23/2023 Findings: There are bilateral renal stones, largest in the right kidney measuring approximately 1.7 x 0.9 cm. Bowel gas pattern nonobstructive. Moderate colonic fecal loading. No acute osseous abnormali ty. Impression: 1: Bilateral nephrolithiasis. Reviewed, dictated and finalized at location B. Impression: 1: Bilateral nephrolithiasis.
--- NOTE | 2023-12-17 08:52 | WPDHPUPDATE1 ---
History and Physical Update Update Date/Time: 12/17/23 08:52 History and Physical has been reviewed, including an updated exam of the patient. There are NO changes in the patient's condition. Risks, benefits, and alternatives have been discussed and questions answered. Patient agrees to proceed with procedure.
[2023-12-17] MEDS: LACTATED RINGERS 1,000 ML 30 ML IV CONT ×2 (11:40→14:20)
[2023-12-17] MEDS: ceFAZolin 2 GM/D5W 50 ML 2 GM/50 ML BAG IVPB (13:14)
--- NOTE | 2023-12-17 13:28 | W.PM.PROC2 ---
Procedure Note - Detailed Date of Procedure 12/17/23 Pre-op Diagnosis Right renal stones Post-op Diagnosis Same Procedure Performed Cystoscopy, right ureteral stent placement, right ESWL Surgeon Cheko Rucker MD Anesthesia General Description of Procedure The patient was brought to the operative suite where he was placed in the supine position on the Dornier lithotripter table. Flexible cystoscopy was undertaken with a 16F flexible cystoscopy. There were no urethral strictures. The prostatic urethra estimated length was 1.5cm. There was no obstruction of the prostatic urethra with no median lobe enlargement. The bladder mucosa was normal and there was a single, orthotopic ureteral orifice bilaterally. A 0.035 glidewire was advanced into the right renal pelvis under fluoroscopy. A 4.8F J-J ureteral stent was positioned with the proximal coil in the renal pelvis and the distal coil in the bladder. The patient was then repositioned in the supine position with the focal point of the lithotriptor at two contiguous right renal pelvic stones measuring collectively 17mm. A total of 2500 shocks were delivered at a power setting of 1-5. There appeared to be good fragmentation of the stone. The patient tolerated the procedure well and was taken to the recovery--- room in good condition. Packing No Pathology None sent Complications No immediate complications Condition Stable Disposition PACU [facility] Billing Surgery - Charge Forward: Surgery Billing
[2023-12-17] MEDS: oxyCODONE HCL (*CRX) 5 MG TAB IR PO (15:21)
== END 2023-12-17 15:57 | disposition home or self-care (01) ==
PROVIDERS: PCP Nurse Practitioner Family; Visit Provider Urology
PROC: (CPT 50590; principal; 2023-12-17 13:00)
PROC: (CPT 52352; 2023-12-17 13:00)
DX: N20.0 Calculus of kidney (principal)
CPT/HCPCS: 50590; 52332; 36415; 74018; 81001; 85610; 85730; 87086; A9270; C1769; C2617; J0690; J1100; J2250; J2405; J2704; J3010; J7120

== ENCOUNTER 2023-12-31 10:43 | Outpatient (CLI) | payer OTHER, SELFPAY ==
--- NOTE | ~2023-12-31 | XR_ITS ---
XR abdomen/kub 1V Ordering provider: Cheko Rucker MD History: . CALCULUS OF KIDNEY, FOLLOW UP . Comparison: December 17, 2023 FINDINGS: BOWEL: Nonobstructive bowel gas pattern. ORGANOMEGALY: None. SIGNIFICANT PATHOLOGIC CALCIFICATIONS: Stone in the left kidney. Right double-J stent. OTHER: No free air is seen under the diaphragm. IMPRESSION: NO ACUTE ABDOMINAL FINDINGS. Stone in the left kidney. Right double-J stent. Reviewed, dictated and finalized at location A.
== END 2023-12-31 10:44 | disposition home or self-care (01) ==
LOC: ANHIMG 10:46
PROVIDERS: PCP Nurse Practitioner Family; Visit Provider Urology
DX: N20.0 Calculus of kidney (principal); Z96.0 Presence of urogenital implants
CPT/HCPCS: 74018

== ENCOUNTER 2024-08-03 17:21 | Outpatient (CLI) | payer OTHER, SELFPAY ==
--- NOTE | ~2024-08-03 | XR_ITS ---
Exam: Abdomen 1V HISTORY: CALCULUS OF KIDNEY; no symptoms at this time COMPARISON: 12/31/2023 and dating back to 03/23/2023 TECHNIQUE: Supine images of the abdomen FINDINGS: Bowel gas pattern is non-obstructive. There is no free air or deep sulci. Bilateral renal calculi are identified. 5.6 mm projecting over the right kidney, and 8 mm, projecting over the left kidney. Interval removal of the right-sided double-J stent. Lung bases are not included. Bones and soft tissues are unremarkable. IMPRESSION: Nonspecific, nonobstructive bowel gas pattern. Bilateral renal calculi Reviewed, dictated and finalized at location A.
--- OUTSIDE RECORDS SUMMARY | 2024-08-03 17:36 | XMS_ITS | Encounter Summary ---
Author Organization [facility] Address [address] [place] [address] Care Team Providers Care Panel Cutter Name Role Phone Rosa Lau Primary Care Provider Encounter Details Date Type Department Care Team (Late st Contact Info) Description 01/29/2024 Ophth Exam [facility] - Ophthalmology [address] [place] [phone] Avery Mustafa MD [address] [place] [address] Social History Tobacco Use Types Packs/Day Years Used Date Smoking Tobacco: Never Assessed Sex and Gender Information Value Date Recorded Sex Assigned at Not on file Legal Sex Male 4:39 AM CDT Gender Identity Not on file Sexual Orientation Not on file documented as of this encounter Plan of Treatment Not on file documented as of this encounter Visit Diagnoses Not on filedocumented in this encounter Care Teams Panel Cutter Relationship Specialty Start Date End Date Rosa Lau APRN-CNP [address] [place] [phone] PCP - General Nurse Practitioner Family 01/29/24 documented as of this encounter
--- OUTSIDE RECORDS SUMMARY | 2024-08-03 17:36 | XMS_ITS | Clinical Summary ---
Author Organization [facility] Address [address] [place] [address] Care Team Providers Care Dental Surgeon Name Role Phone Rosa Lau Caterina ROSS-INSTITUTIONAL RESEARCH COORDINATOR Primary Care Provider Source Comments [facility] [employer],non-owned Affiliates and Associated Physician Practices is amultiple site organization consisting of ambulatory clinics and hospital sitesin [place], [place], [place] and [place]. This disclosure is being madepursuant to the Care Everywhere program and may not contain all information available regarding this patient. Last updated 17.[facility] [employer] Allergies No known active allergies Active Problems Problem Noted Date Diagnosed Date Symptomatic posterior vitreous detachment of lef t eye 01/29/2024 Left hand paresthesia 01/29/2024 Social History Tobacco Use Types Packs/Day Years Used Date Smoking Tobacco: Never Assessed Sex and Gender Information Value Date Recorded Sex Assigned at Not on file Legal Sex Male 4:39 AM CDT Gender Identity Not on file Sexual Orientation Not on file Last Filed Vital Signs Vital Sign Reading Time Taken Comments Blood Pressure 157/106 01/29/2024 2:24 PM CDT Pulse 72 01/29/2024 2:24 PM CDT Temperature 36.3 C (97.4 F) 01/29/2024 9:00 AM CDT Respiratory Rate 22 01/29/2024 2:24 PM CDT Oxygen Saturation 96% 01/29/2024 2:24 PM CDT Inhaled Oxygen Concentration - - Weight - - Height - - Body Mass Index - - Plan of Treatment Health Maintenance Due Date Last Done Comments HEAVEN (AGES 45-75) - COL ON CA SCREENING 1965 COLON MONITORING 1965 COLONOSCOPY - COLON CA SCREENING 1964 CT COLONOGRAPHY - COLON CA SCREENING 1965 Colorectal Cancer Screening 1965 FIT - COLON CA SCREENING 1965 FLEX SIG - COLON CA SCREENING 1965 LIPID TESTING 1965 HIV SCREENING 12/03/1979 HEPATITIS C SCREENING 11/28/1982 DTAP/TDAP/TD VACCINES (1 - Tdap) 12/03/1983 HEPATITIS B VACCINE (1 of 3 - 19+ 3-dose series) 12/03/1983 PNEUMOCOCCAL VACCINE 50+ (1 of 1 - PCV) 2014 ZOSTER VACCINE (1 of 2) 2014 COVID-19 VACCINE (1 - 2023-2 5 season) 2023 DEPRESSION SCREENING 04/12/2024 INFLUENZA VACCINE (Season Ended) 2024 HIB VACCINE Aged Out No longer eligi ble based on patient's age to complete this topic HPV VACCINE Aged Out No longer eligi ble based on patient's age to complete this topic MENINGOCOCCAL (Group B) VACC INE SHARED DECISION-MAKING Aged Out No longer eligibl e based on patient's age to complete this topic MENINGOCOCCAL GROUPS A/C/Y/W VACCINE Aged Out No longer eligible b ased on patient's age to complete this topic Insurance Care Teams Dental Surgeon Relationship Specialty Start Date End Date Rosa Lau, FACILITIES MAINTENANCE SUPERVISOR-INSTITUTIONAL RESEARCH COORDINATOR [address] [place] [address] PCP - General Nurse Practitioner Family 01/29/24
--- OUTSIDE RECORDS SUMMARY | 2024-08-03 17:36 | XMS_ITS | Continuity of Care Document ---
Author Organization [facility] Address [address] [place] [phone] Care Team Providers Care Shiatsu Therapist Name Role Phone Unavailable, Phys Primary Care Physician Unavail able Encounter SOHAM BULLARD [id number] Date(s): 08/01/24 - 08/01/24 [facility] [address] [place] [phone] Encounter Diagnosis External hemorrhoid(Discharge Diagnosis) - 08/01/24 Discharge Disposition: Home or Self Care Attending Physician: Annamarie Ames Encounter Type: Clinic Allergies, Adverse Reactions, Alerts No Known Medication Allergies Assessment and Plan Extracted from: Title:Office Visit Note Author:Annamarie Ames Date:08/01/24 1. External hemorrhoid K64.4 Patient started on cephalexin, apply Proctosol cream topically as directed referral to general surgeon. Implement sitz bath as needed for comfort patient encouraged to start MiraLAX as needed for firm stools. Increase water intake. Ordered: cephalexin 500 mg oral capsule, 500 mg = 1 cap, Oral, every 12 hr, # 20 cap, 0 Refill(s), Pharmacy: [facility], 180.34, cm, 08/01/24 9:16:00 CDT, Height, 108.05, kg, 08/01/24 9:19:00 CDT, Weight Dosing Proctosol-HC 2.5% topical cream, 1 kathy, Topical, BID, # 28 g, 0 Refill(s), Pharmacy: [facility], 180.34, cm, 08/01/24 9:16:00 CDT, Height, 108.05, kg, 08/01/24 9:19:00 CDT, Weight Dosing Future Appointments Immunizations Given and Recorded Vaccine Date Status Refusal Reason tetanus/diphth/pertuss (Tdap) adult/adol 11/08/23 Given Medications cephalexin 500 mg oral capsule 500 mg = 1 cap, Oral, every 12 hr, # 20 cap, 0 Refill(s), Pharmacy: [facility], 180.34,cm, 08/01/24 9:16:00 CDT, Height, 108.05, kg, 08/01/24 9:19:00 CDT, Weight Dosing Start Date: 08/01/24 Status: Ordered Quantity: 20.0 Unit: cap Repeat number: 1 Indications: Residual hemorrhoidal skin tags; lisinopril 20 mg oral tablet take 1 tablet by mouth daily Start Date: 08/01/24 Status: Ordered Repeat number: 1 potassium citrate 10 mEq oral tablet, extended release take 2 tablets by mouth daily Start Date: 08/01/24 Status: Ordered Repeat number: 1 Proctosol-HC 2.5% topical cream 1 kathy, Topical, BID, # 28 g, 0 Refill(s), Pharmacy: [facility], 180.34, cm, 08/01/24 9:16:00 CDT, Height, 108.05, kg, 08/01/24 9:19:00 CDT, Weight Dosing Start Date: 08/01/24 Status: Ordered Quantity: 28.0 Unit: g Repeat number: 1 Indications: Residual hemorrhoidal skin tags; zolpidem 10 mg oral tablet take 1 tablet by mouth every day at bedtime as needed for insomnia Start Date: 08/01/24 Status: Ordered Repeat number: 1 Problem List Condition Confirmation Course Effective Dates Status Health St atus Informant Head injury due to trauma Confirmed Active Occipital scalp laceration Confirmed Active Vital Signs Most recent to oldest [Reference Range]: 1 Temperature Oral [35.8-37.3 Deg C] 36.8 Deg C (08/01/24 9:16 AM) Peripheral Pulse Rate [60-100 bpm] 86 bp m (08/01/24 9:16 AM) Respiratory Rate [12-24 br/min] 18 br/mi n (08/01/24 9:16 AM) Blood Pressure [90-120/60-80 mmHg] 124/8 2mmHg *HI* (08/01/24 9:16 AM) Mean Arterial Pressure, Cuff [65-140 mmH g] 96 mmHg (08/01/24 9:16 AM) Weight 108.05 kg (08/01/24 9:16 AM) Weight Measured (lbs) 238.209 lb (08/01/24 9:16 AM) Weight Dosing 108.050 kg (08/01/24 9:16 AM) Height 180.34 cm (08/01/24 9:16 AM) Height/Length Measured (inches) 71 inch (08/01/24 9:16 AM) BSA Measured 2.33 m2 (08/01/24 9:16 AM) Body Mass Index 33.22 kg/m2 (08/01/24 9:16 AM) Social History Social History Type Response Tobacco Never tobacco user T obacco Use:. 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 ??Notes onset of symptoms??was yesterday. ??Patient notes he is dealt with this in the past notes the lump is typically??swell up??painful and then rupture. ??Patient denies??hard firm stools or straining.?? No fever no malaise??no myalgia. Review of Systems Constitutional:??no??fever,??no??chills,??no??sweats,??no??weakness Respiratory:??no??shortness of breath,??no??cough Cardiovascular:??no??chest pain Additional ROS info: Except as noted in the above Review of Systems and in the History of Present Illness all other systems have been reviewed and are negative or noncontributory.?? Physical Exam Vitals & Measurements T:??36.8?C ??(Oral)?? HR:??86??(Peripheral)?? RR:??18?? BP:??124/82?? SpO2:??98%?? HT:??180.34??cm?? WT:??108.05??kg?? BMI:??33.22?? Pain Score:??3?? BSA:??2.33?? General:??Alert and oriented, well nourished,?No??acute distress Lungs:??Clear to auscultation?Respiration:??Non-Labored?? Heart:?Normal?rate,?Regular??rhythm,?No??murmur,?No??gallop Abdomen:??Soft, non-tender, non-distended,?Normal?bowel sounds,?No??masses Musculoskeletal:?Normal?range of motion and strength,?No??tenderness,?No??swelling Skin:??Skin is warm, dry and pink, bluish firm lump noted to the rectum, tender with palpation, spreading erythema noted Neurologic:??Awake, alert and oriented X4 Assessment/Plan 1.??External hemorrhoid??K64.4 Patient started on cephalexin, apply Proctosol??cream topically??as directed referral to general surgeon. ??Implement sitz bath as needed??for comfort??patient encouraged to start MiraLAX??as needed for??firm stools. ??Increase water intake. Ordered: cephalexin 500 mg oral capsule, 500 mg = 1 cap, Oral, every 12 hr, # 20 cap, 0 Refill(s), Pharmacy:[facility], 180.34, cm, 08/01/24 9:16:00 CDT, Height, 108.05, kg, 08/01/24 9:19:00 CDT,Weight Dosing Proctosol-HC 2.5% topical cream, 1 kathy, Topical, BID, # 28 g, 0 Refill(s), Pharmacy: [facility], 180.34, cm, 08/01/24 9:16:00 CDT, Height, 108.05, kg, 04/22/25 9:19:00 CDT, Weight Dosing ?? Referral Orders Referral Ambulatory, General Surgery, external hemorrhoid, Victoriano Mackey MD, 08/01/24 9:26:00 CDT, External hemorrhoid Problem List/Past Medical History Ongoing Head injury due to trauma Occipital scalp laceration Historical No qualifying data Medications cephalexin 500 mg oral capsule, 500 mg= 1 cap, Oral, every 12 hr lisinopril 20 mg oral tablet, take 1 tablet by mouth daily potassium citrate 10 mEq oral tablet, extended release, take 2 tablets by mouth daily Proctosol-HC 2.5% topical cream, 1 kathy, Topical, BID zolpidem 10 mg oral tablet, take 1 tablet by mouth every day at bedtime as needed for insomnia Allergies No Known Medication Allergies Social History Electronic Cigarette/Vaping Electronic Cigarette Use: Never. Sexual What is your current gender identity? (Check all that apply) Identifies as male. Tobacco Never tobacco user Tobacco Use:. Family History Family history is negative Immunizations Vaccine Date Status tetanus/diphth/pertuss (Tdap) adult/adol 11/08/2023 Given Electronically Signed on 08/01/2024 09:50 CDT Annamarie Ames DRIVER [employer]-C Patient Care team information Care Team Personnel Name: Jonathon, Terry Position: No Access Member Role: Primary Care Physician Care Team Related Persons Name: HAO HERNANDEZ Name: HAO HERNANDEZ Insurance Providers Guarantor name: Health Plan Information #: 1 Payer: [employer] Member Number: [id number] Policy Number: NA Group Number: [id number] Payer Identifier: [id number] Health Plan Information #: 2 Payer: [employer] Member Number: [id number] Policy Number: NA Group Number: NA Payer Identifier: [id number]
--- OUTSIDE RECORDS SUMMARY | 2024-08-03 17:36 | XMS_ITS | Continuity of Care Document ---
Author Organization [facility] Address [address] [place] [phone] Care Team Providers Care Economic Consultant Name Role Phone Unavailable, Phys Primary Care Physician Unavail able Encounter SOHAM BULLARD [id number] Date(s): 08/02/24 - 08/02/[address] [phone] Encounter Diagnosis Thrombosed external hemorrhoid(Discharge Diagnosis) - 08/02/24 Discharge Disposition: Home or Self Care Attending Physician: Victoriaon Mackey MD Encounter Type: Clinic Allergies, Adverse Reactions, Alerts No Known Medication Allergies Assessment and Plan Extracted from: Title:Office Visit Note Author:Rafita Mackey MD Date:08/02/24 1. Thrombosed external hemorrhoid K64.5 Reassured Andrés that this will get better on its own. If he has any issues in the future recommended him to follow-up with us for further evaluation. Immunizations Given and Recorded Vaccine Date Status Refusal Reason tetanus/diphth/pertuss (Tdap) adult/adol 11/08/23 Given Medications cephalexin 500 mg oral capsule 500 mg = 1 cap, Oral, every 12 hr, # 20 cap, 0 Refill(s), Pharmacy: [facility], 180.34,cm, 08/01/24 9:16:00 CDT, Height, 108.05, [...] BID, # 28 g, 0 Refill(s), Pharmacy: [facility], 180.34, cm, 08/01/24 9:16:00 CDT, Height, 108.05, [...] recent to oldest [Reference Range]: 1 Temperature Tympanic [36.6-38.1 Deg C] 3 6.9 Deg C (08/02/24 2:45 PM) Peripheral Pulse Rate [60-100 bpm] 86 bp m (08/02/24 2:45 PM) Respiratory Rate [12-24 br/min] 20 br/mi n (08/02/24 2:45 PM) Weight 106.59 kg (08/02/24 2:45 PM) Weight Measured (lbs) 234.99 lb (08/02/24 2:45 PM) Weight Dosing 106.590 kg (08/02/24 2:45 PM) Height 180.34 cm (08/02/24 2:45 PM) Height/Length Measured (inches) 71 inch (08/02/24 2:45 PM) BSA Measured 2.31 m2 (08/02/24 2:45 PM) Body Mass Index 32.77 kg/m2 (08/02/24 2:45 PM) Social History Social History Type Response Tobacco Never tobacco user T obacco Use:. Sex Sex Representation Male (finding) Physician Outpatient Note * Victoriano Mackey MD: PERFORM Event Display: Office Clinic Note Physician Authored Date: [id number] TOBI HERNANDEZ :1965 Age:58 years Sex:Male Registration Date:08/02/2024 Primary Care Physician: Jonathon, Terry Chief Complaint Painful hemeroid or cyst. Unknown. No bleeding. History of Present Illness Andrés is here for evaluation of??pain and swelling in the perianal region. He had severe swelling and pain few days ago. Currently he is feeling slightly better. He states that he had similar episodes 2-3 times before. Moves his bowels on a regular basis. His last colonoscopy was 9 years ago, normal. Denies any family history of colorectal cancer. ?? Review of Systems 14 point review of systems negative except those mentioned in the HPI Physical Exam Vitals & Measurements T:??36.9?C ??(Tympanic)?? HR:??86??(Peripheral)?? RR:??20?? SpO2:??97%?? HT:??180.34??cm?? WT:??106.59??kg?? BMI:??32.77?? Pain Score:??3?? BSA:??2.31?? General: Alert and oriented, well nourished,?No??acute distress Neck: Supple, non-tender,?No??JVD,?No??lymphadenopathy Lungs: Clear to auscultation and percussion,?Non-labored?? respiration Heart:?Normal?? rate,?Regular??rhythm,?No??murmur, no peripheral edema Abdomen: Soft, non-tender, non-distended,?Normal?? bowel sounds,?No??masses. ??Thrombosed external hemorrhoid was identified on the right lateral location. Skin: Skin is warm, dry and pink,?No??rashes,?No??lesions Neurologic: Awake, alert and oriented X4, CN II-XII intact Assessment/Plan 1.??Thrombosed external hemorrhoid??K64.5 Reassured Andrés that this will??get better on its own.?? If he has any issues in the future??recommended him to follow-up with us for further evaluation. Problem List/Past Medical History Ongoing Head injury [...] (Tdap) adult/adol 11/08/2023 Given Electronically Signed on 08/02/2024 15:36 CDT Victoriano Mackey MD Patient Care team information Care Team Personnel Name: Unavailable, Phys Position: No Access Member Role: Primary Care Physician Care Team Related Persons Name: HAO HERNANDEZ Name: HAO HERNANDEZ Insurance Providers Guarantor name: Health Plan Information #: 1 Payer: [employer] Member Number: [id number] Policy Number: NA Group Number: [id number] Payer Identifier: [id number] Health Plan Information #: 2 Payer: [employer] [facility] Member Number: [id number] Policy Number: NA Group Number: [id number] Payer Identifier: [id number]
--- OUTSIDE RECORDS SUMMARY | 2024-08-03 17:36 | XMS_ITS | Clinical Summary ---
Author Organization [facility] Address [facility] [place] [address] Care Team Providers Care Gang Pusher Name Role Phone Rosa Lau Caterina [facility] Primary Care Provider + Allergies No known active allergies Medications No known medications Social History Tobacco Use Types Packs/Day Years Used Date Smoking Tobacco: Never Smokeless Tobacco: Never Tobacco Cessation:Counseling Given: No Alcohol Use Standard Drinks/Week Comments Not Currently 0 (1 standard drink = 0.6 oz pur e alcohol) Sex and Gender Information Value Date Recorded Sex Assigned at Not on file Legal Sex Male 9:39 PM CDT Gender Identity Not on file Sexual Orientation Not on file Last Filed Vital Signs Vital Sign Reading Time Taken Comments Blood Pressure 133/99 01/29/2024 6:30 AM CDT Pulse 64 01/29/2024 6:30 AM CDT Temperature 36 C (96.8 F) 01/29/2024 1:45 AM CDT Respiratory Rate 18 01/29/2024 6:30 AM CDT Oxygen Saturation 97% 01/29/2024 6:30 AM CDT Inhaled Oxygen Concentration - - Weight 105 kg (231 lb 7.7 oz) 01/29/2024 1:48 AM CDT Height 180.3 cm (5' 11 ) 01/29/2024 1:45 AM CDT Body Mass Index 32.29 01/29/2024 1:45 AM CDT Plan of Treatment Health Maintenance Due Date Last Done Comments Colorectal Cancer Screening Colonoscopy (10 Years) 1964 Annual Physical 12/03/1967 Hepatitis C 1982 Pneumococcal Vaccine: 50+ Years (1 of 1 - PCV) 2014 COVID-19 Vaccine (3 - 2023-2 5 season) 2023 07/16/2020, 06/25/2020 Zoster Vaccines (2 of 2) 01/26/2024 12/01/2023 PHQ-2 (Physician [place]) 04/12/2024 DTaP, Tdap and Td Vaccines ( 2 - Td or Tdap) 11/07/2033 11/08/2023 Meningococcal B Vaccine Aged Out No l onger eligible based on patient's age to complete this topic Meningococcal Vaccine Aged Out No yimi deshaun eligible based on patient's age to complete this topic RSV Immunizations Under 20 Months Aged Out No longer eligible b ased on patient's age to complete [place] [id number] Care Teams Gang Pusher Relationship Specialty Start Date End Date Rosa Lau, MEDICATION ADMINISTRATION PROFESSIONAL- [address] [place] [address] PCP - General Nurse Practitioner Family 01/29/24
== END 2024-08-03 17:22 | disposition home or self-care (01) ==
LOC: ANHIMG 17:23
PROVIDERS: PCP Nurse Practitioner Family; Visit Provider Urology
DX: N20.0 Calculus of kidney (principal); R14.0 Abdominal distension (gaseous)
CPT/HCPCS: 74018

== ENCOUNTER 2024-08-22 14:30 | Outpatient (CLI) | payer OTHER, SELFPAY ==
--- NOTE | 2024-08-22 14:36 | ECG_ITS ---
Test Date: 2024-08-22 14:59:56 Measurements Intervals [place] Rate: 77 P: 51 [place]: 167 QRS: -6 QRSD: 90 T: 13 QT: 363 QTc: 412 Interpretive Statements SINUS RHYTHM No previous ECG available for comparison Electronically Signed On 08-22-2024 15:08:59 CDT by Ashlee Guo M.D.
--- OUTSIDE RECORDS SUMMARY | 2024-08-22 14:46 | XMS_ITS | Encounter Summary ---
Author Organization [facility] Address [address] [facility] [place] [address] Care Team Providers Care Solar Pool Heating Installer Name Role Phone Rosa Lau Primary Care Provider Encounter Details Date Type Department Care Team (Late st Contact Info) Description 01/29/2024 Ophth Exam [facility] - Ophthalmology [address] [place] [phone] Avery Mustafa MD [address] [place] [address] Social History Tobacco Use Types Packs/Day Years [...] on filedocumented in this encounter Care Teams Solar Pool Heating Installer Relationship Specialty Start Date End Date Rosa Lau APRN-CNP [address] [place] [phone] PCP - General Nurse Practitioner Family 01/29/24 documented as of this encounter
--- OUTSIDE RECORDS SUMMARY | 2024-08-22 14:46 | XMS_ITS | Clinical Summary ---
Author Organization [facility] Address [address] [facility] [place] [address] Care Team Providers Care Unindentured Apprentice Name Role Phone Rosa Lau Caterina ROSS-VOLCANOLOGIST Primary Care Provider Source Comments [facility],non-owned Affiliates and Associated Physician Practices is amultiple site organization consisting of ambulatory clinics and hospital sitesin [place], [place], [place] and [place]. This disclosure is being madepursuant to the Care Everywhere program and may not contain all information available regarding this patient. Last updated 17.[facility] Allergies No known active allergies Active Problems [...] to complete this topic Insurance Care Teams Unindentured Apprentice Relationship Specialty Start Date End Date Rosa Lau, FIXTURE RELAMPER-VOLCANOLOGIST [address] [place] [phone] PCP - General Nurse Practitioner Family 01/29/24
--- OUTSIDE RECORDS SUMMARY | 2024-08-22 14:46 | XMS_ITS | Clinical Summary ---
Author Organization [facility] Address [facility] [place] [address] Care Team Providers Care Weigh And Charge Worker Name Role Phone Rosa Lau Caterina [facility] Primary Care Provider + Allergies No known [...] (2 of 2) 01/26/2024 12/01/2023 PHQ-2 (Physician [place]) 04/12/2024 DTaP, Tdap and Td Vaccines ( [...] to complete this topic Insurance Care Teams Weigh And Charge Worker Relationship Specialty Start Date End Date Rosa Lau, SPICE ROOM WORKER- [address] [place] [address] PCP - General Nurse Practitioner Family 01/29/24
[2024-08-22 15:38] LABS: Prothrombin Time 13.5 Seconds (11.1-14.7)
[2024-08-22 15:39] LABS: Partial Thromboplastin Time 25.5 Seconds (22.3-36.8)
== END 2024-08-22 14:31 | disposition home or self-care (01) ==
LOC: ANHSURGERY 14:35
PROVIDERS: PCP Nurse Practitioner Family; Visit Provider Urology
DX: Z01.818 Encounter for other preprocedural examination (principal); I10 Essential (primary) hypertension; N20.0 Calculus of kidney
CPT/HCPCS: 36415; 85610; 85730; 87086; 93005

== ENCOUNTER 2024-08-30 00:21 | Day surgery (SDC) | payer OTHER, SELFPAY ==
[2024-08-21 14:21] VITALS: BMI 32.1
--- NOTE | 2024-08-21 14:22 | PC.NURSE ---
Report to the Outpatient Waiting Room, entrance under the green pavilion located off [facility], at time _1000_ on date _06-03-7209_. Planned Procedure Time: _1200_.? Time changes happen often and if your time is changed the preop area will call you the afternoon before. - You and your visitor will be asked to self-screen and do not enter if you have any COVID symptoms. Please call surgeon if you need to reschedule. - A mask is optional within the hospital at this time. Patients may have clear liquids (water, carbonated beverages, clear teas, apple juice) until 3 hours prior to surgery with a maximum of 20 ounces. - No food from midnight until time of surgery and no smoking, or chewing tobacco (or any form of nicotine). No chewing gum, candy or mints. Take only the following medications with a SIP of water on the morning of surgery: ___None____ DO NOT STOP ANY OF YOUR OTHER PRESCRIPTION MEDICATIONS PRIOR TO SURGERY EXCEPT THE FOLLOWING Hold all vitamins and supplements for 3 days per anesthesiologist. Medications to discontinue per physician Date to take last dose Please no make-up, nail georgian, hairspray, perfume, deodorant, or body powder the day of surgery.? No jewelry (including any body piercings) or valuables the day of surgery, leave them at home.? Please take a shower or bath the night before, or the morning of, surgery with an antibacterial soap.? Wear comfortable, loose fitting clothing.? - Jewelry must be removed prior to entering the operating room.? Rings and piercings that are not removed may be cut off. - The hospital will not accept responsibility for valuables.? - Please leave all valuables, including medications, at home the day of surgery. If you are going home after surgery, a licensed cdl driver must drive you home.? - NO public transportation without another adult if you receive anesthesia. - We recommend that an adult stay with you for 24 hours following discharge. - We also recommend that you do not drive, make important decision, drink alcoholic beverages, or take any drugs that were not prescribed by your health care provider for at least 24 hours after your discharge time. Follow any additional instructions given to you from your surgeon. Telephone instructions given to __Cheko___and asked if any additional questions and then verbalized understanding. Patient advised to call surgeon office or pre surgery nurse liaison [phone] if any additional questions.
--- NOTE | 2024-08-29 06:07 | P.HP_ITS ---
History of Present Illness History of Present Illness Consent: Risks, benefits, and alternatives have been discussed and questions answered. Patient agrees to proceed with procedure. Chief complaint: left renal kidney stone Narrative: Cheko Nolen is a 58 year recurrent stone former on chronic Urocit-K. Has known 7mm stable stone in left kidney with new 5mm stone in right kidney on recent ESWL. Elects for left ESWL / will consider treatment contralateral stone in the future. Review of Systems Cardiovascular: Cardiovascular: Denies chest pain, Denies lightheadedness, Denies palpitations and Denies dyspnea Respiratory: Respiratory: Denies dyspnea Gastrointestinal: Gastrointestinal: Denies diarrhea, Denies nausea and Denies vomiting Genitourinary: Genitourinary: Denies hematuria and Denies dysuria Endocrine: Endocrine: Denies palpitations PMFSH Past Medical History Medical History (Reviewed 12/01/23 @ 08:03 by Shandra Bhagat [facility]) Annual physical exam Deviated septum Encounter for screening for malignant neoplasm of prostate History of kidney stones Obesity AMI (obstructive sleep apnea) Otitis media Screening cholesterol level Screening for thyroid disorder Surgical History Surgical History H/O lithotripsy H/O mastoidectomy History of colonoscopy 2016 Hx of cystoscopy Family History Family History Mother Breast cancer Diabetes mellitus Sibling Hypertension Social History Social History (Updated 03/01/24 @ 13:42 by Aguilar Yung) Social History: 02/29/24 very confident with medical forms Smoking status: Never smoker Alcohol intake: current Drinks per week: 1 Alcohol use details: RARE Substance use: never Substance use type: does not use Do You Feel Safe in your Home?: Yes Lack of Transportation: No Lack of Food: Never True Current Housing: I Have Housing Concerned About Future Housing: No Difficulty Paying Gas/Electric Bills: No Difficulty Paying for Meds: No Currently Unemployed: No Education: Master's Degree or Higher Difficulty w/ Childcare or Family Care: No Living arrangements: with family Occupation/Education: occupation 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[employer] Gender identity (if verbalized by the patient): Male Spiritual care concerns: No Agree to blood products: Yes Meds Home Medications and Allergies Home Medications ?Medication ?Instructions ?Recorded ?Confirmed ?Type potassium citrate 10 mEq (1,080 10 meq PO BID #60 tabs 12/17/23 08/21/24 Rx mg) tablet,extended release (Urocit-K 10) lisinopril 20 mg tablet 20 mg PO DAILY #90 tabs 07/11/24 08/21/24 Rx zolpidem 10 mg tablet 10 mg PO QHS PRN insomnia #30 tabs 08/08/24 08/21/24 Rx Allergies Allergy/AdvReac Type Severity Reaction Status Date / Time No Known Allergies Allergy Verified 08/21/24 14:17 Exam Const: General: no acute distress Resp: Effort & Inspection: normal respiratory effort GI: Inspection: non-distended GI Palp: No abdominal tenderness and No Guarding due to palpation present (GI) Auscultation: normal bowel sounds Assessment and Plan Assessment and plan (1) Bilateral renal stones: Code(s): N20.0 - Calculus of kidney Status: Acute Assessment and Plan: * Left ESWL
[2024-08-30] VITALS (7 sets, daily range): BP systolic 105–129; BP diastolic 72–85; PULSE 57–68; RESP 11–18; TEMP 36.6–36.7; O2SAT 97–99; BMI 31.7
--- NOTE | ~2024-08-30 | XR_ITS ---
XR abdomen/kub 1V Ordering provider: Cheko Rucker MD History: . ESWL . Comparison: August 03, 2024 FINDINGS: BOWEL: Nonobstructive bowel gas pattern. ORGANOMEGALY: None. SIGNIFICANT PATHOLOGIC CALCIFICATIONS: Stone is seen in the left kidney which measures 7 mm. Tiny sto ne in the right kidney measuring 4 mm. OTHER: No free air is seen under the diaphragm. IMPRESSION: NO ACUTE ABDOMINAL FINDINGS. Bilateral renal stones. Reviewed, dictated and finalized at location A.
--- OUTSIDE RECORDS SUMMARY | 2024-08-30 00:23 | XMS_ITS | Encounter Summary ---
Author Organization [facility] Address [address] [facility] [place] [address] Care Team Providers Care Pest Controller Assistant Name Role Phone Rosa Lau Primary Care Provider Encounter Details Date Type Department Care Team (Late st Contact Info) Description 01/29/2024 Ophth Exam [facility] - Ophthalmology [address] [place] [phone] Avery Mustafa MD [address] [place] [address] Social History Tobacco Use Types Packs/Day Years [...] on filedocumented in this encounter Care Teams Pest Controller Assistant Relationship Specialty Start Date End Date Rosa Lau APRN-CNP [address] [place] [phone] PCP - General Nurse Practitioner Family 01/29/24 documented as of this encounter
--- OUTSIDE RECORDS SUMMARY | 2024-08-30 00:23 | XMS_ITS | Clinical Summary ---
Author Organization [facility] Address [address] [facility] [place] [address] Care Team Providers Care Ribbing Machine Operator Name Role Phone Rosa Lau Caterina ROSS-TRIAGE RN Primary Care Provider Source Comments [facility],non-owned Affiliates and Associated Physician Practices is amultiple site organization consisting of ambulatory clinics and hospital sitesin [place], [place], [place] and [place]. This disclosure is being madepursuant to the Care Everywhere program and may not contain all information available regarding this patient. Last updated 17.[facility] Allergies No known active allergies Active Problems [...] to complete this topic Insurance Care Teams Ribbing Machine Operator Relationship Specialty Start Date End Date Rosa Lau, INTELLIGENCE CHIEF-TRIAGE RN [address] [place] [phone] PCP - General Nurse Practitioner Family 01/29/24
--- NOTE | 2024-08-30 06:51 | WPDHPUPDATE1 ---
History and Physical Update Update Date/Time: 08/30/24 06:51 History and Physical has been reviewed, including an updated exam of the patient. There are NO changes in the patient's condition. Risks, benefits, and alternatives have been discussed and questions answered. Patient agrees to proceed with procedure.
[2024-08-30] MEDS: LACTATED RINGERS 1,000 ML 30 ML IV CONT (10:25)
--- NOTE | 2024-08-30 11:57 | P.PNAN_ITS ---
Anes - Initial Pre Proc Eval Procedure: Operation Date: 08/30/24 13:00 Proposed Procedures p Left Extracorporeal Shock Wave Lithotripsy - Cheko Rucker MD Date/Time: 08/30/24 11:57 Surgeon: Cheko Rucker MD Pre Op Diagnosis: left renal kidney stone Patient Data Age: 58 Gender: M Height: 1.8 m Weight: 103.2 kg Last Vital Signs Temp 36.7 C 08/30/24 10:15 Pulse 65 08/30/24 10:15 Resp 16 08/30/24 10:15 BP 112/72 08/30/24 10:15 Pulse Ox 97 08/30/24 10:15 O2 Del Method Room Air 08/30/24 10:15 Allergies Allergy/AdvReac Type Severity Reaction Status Date / Time No Known Allergies Allergy Verified 08/30/24 11:07 Home Medications ?Medication ?Instructions ?Recorded ?Confirmed ?Type potassium citrate 10 mEq (1,080 10 meq PO BID #60 tabs 12/17/23 08/30/24 Rx mg) tablet,extended release (Urocit-K 10) lisinopril 20 mg tablet 20 mg PO DAILY #90 tabs 07/11/24 08/30/24 Rx zolpidem 10 mg tablet 10 mg PO QHS PRN insomnia #30 tabs 08/08/24 08/21/24 Rx Patient hx anesthesia problems: none Family hx anesthesia problems: none Results Review: All pre-operative results and documents have been reviewed as part of the pre- operative evaluation. [facility] Past Medical History Medical History Otitis media Screening for thyroid disorder Encounter for screening for malignant neoplasm of prostate Screening cholesterol level History of kidney stones Annual physical exam Deviated septum AMI (obstructive sleep apnea) Obesity Surgical History Surgical History History of colonoscopy 2016 H/O lithotripsy Hx of cystoscopy H/O mastoidectomy Family History Family History Mother Breast cancer Diabetes mellitus Sibling Hypertension Social History Social History Social History: 02/29/24 very confident with medical forms Smoking status: Never smoker Alcohol intake: current Drinks per week: 1 Alcohol use details: RARE Substance use: never Substance use type: does not use Do You Feel Safe in your Home?: Yes Lack of Transportation: No Lack of Food: Never True Current Housing: I Have Housing Concerned About Future Housing: No Difficulty Paying Gas/Electric Bills: No Difficulty Paying for Meds: No Currently Unemployed: No Education: Master's Degree or Higher Difficulty w/ Childcare or Family Care: No Living arrangements: with family Occupation/Education: occupation 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[employer] Gender identity (if verbalized by the patient): Male Spiritual care concerns: No Agree to blood products: Yes Anes - Eval Final PreProcedure Day of Procedure 08/30/24 11:57 Patient weight: obese Heart: regular rate and rhythm Lungs: clear to auscultation Airway: Mallampati scale class III Neurological: alert and oriented Last oral intake: >/= 8 hours ASA classification: III Emergent: no Anesthetic plan: proceed Anesthesia type and monitoring: general LMA and standard monitoring Results Review: All pre-operative results and documents have been reviewed as part of the pre- operative evaluation. Informed Consent: The patient's anesthetic plan and its attendant risks and benefits were discussed with the patient/family/POA. Questions were solicited and answers pro vided to the satisfaction of the patient/family/POA.
[2024-08-30] MEDS: ceFAZolin 2 GM/D5W 50 ML 2 GM/50 ML BAG IVPB (13:12)
--- NOTE | 2024-08-30 13:26 | W.PM.PROC2 ---
Procedure Note - Detailed Date of Procedure 08/30/24 Pre-op Diagnosis Bilateral kidney stones Post-op Diagnosis Same Procedure Performed Left ESWL Surgeon Cheko Rucker MD Anesthesia General Description of Procedure The patient was brought to the operative suite where he was placed in the supine position on the Dornier lithotripsy table. The focal point of the lithotripter was placed at a 8mm left renal calculus. A total of 2500 shocks were delivered at a power setting of 4. There appeared to be good fragmentation of the stone. The patient tolerated the procedure well and was taken to the recovery room in good condition. Drains No Packing No Pathology None sent Condition Stable Disposition PACU
== END 2024-08-30 14:58 | disposition home or self-care (01) ==
PROVIDERS: PCP Nurse Practitioner Family; Visit Provider Urology
PROC: (CPT 50590; principal; 2024-08-30 13:00)
DX: N20.0 Calculus of kidney (principal); G47.33 Obstructive sleep apnea (adult) (pediatric); J34.2 Deviated nasal septum; E66.9 Obesity, unspecified; Z68.31 Body mass index [BMI] 31.0-31.9, adult; Z98.890 Other specified postprocedural states; Z80.3 Family history of malignant neoplasm of breast
CPT/HCPCS: 50590; 74018; J0690; J1100; J2003; J2250; J2405; J2704; J3010; J7120

== ENCOUNTER 2024-09-19 10:52 | Outpatient (CLI) | payer OTHER, SELFPAY ==
--- NOTE | ~2024-09-19 | XR_ITS ---
Supine and upright views of the abdomen Clinical history: Kidney stone COMPARISON: 08/30/2024 Findings: Bowel gas pattern is nonspecific. No evidence for obstruction or free air. Bilateral renal stones are unchanged from prior exam. Osseous structures are intact. Impression: Stable bilateral renal stones. Reviewed, dictated and finalized at [facility]. Impression: Stable bilateral renal stones.
--- OUTSIDE RECORDS SUMMARY | 2024-09-19 12:14 | XMS_ITS | Encounter Summary ---
Author Organization [facility] Address [address] [facility] [place] [address] Care Team Providers Care Step Finisher Name Role Phone Rosa Lau Primary Care Provider Encounter Details Date Type Department Care Team (Late st Contact Info) Description 01/29/2024 Ophth Exam [facility] - Ophthalmology [address] [place] [phone] Avery Mustafa MD [address] [place] [address] Social History Tobacco Use Types Packs/Day Years [...] on filedocumented in this encounter Care Teams Step Finisher Relationship Specialty Start Date End Date Rosa Lau APRN-CNP [address] [place] [phone] PCP - General Nurse Practitioner Family 01/29/24 documented as of this encounter
--- OUTSIDE RECORDS SUMMARY | 2024-09-19 12:14 | XMS_ITS | Clinical Summary ---
Author Organization [facility] Address [address] [place] [address] Care Team Providers Care Hose Tester Name Role Phone Rosa Lau Caterina ROSS-SHERIFF'S SERGEANT Primary Care Provider Source Comments [facility],non-owned Affiliates and Associated Physician Practices is amultiple site organization consisting of ambulatory clinics and hospital sitesin [place], [place], [place] and [place]. This disclosure is being madepursuant to the Care Everywhere program and may not contain all information available regarding this patient. Last updated 17.[facility] Allergies No known active allergies Active Problems [...] to complete this topic Insurance Care Teams Hose Tester Relationship Specialty Start Date End Date Rosa Lau, NUMERICAL CONTROL OPERATOR-SHERIFF'S SERGEANT [address] [place] [phone] PCP - General Nurse Practitioner Family 01/29/24
== END 2024-09-19 10:53 | disposition home or self-care (01) ==
PROVIDERS: PCP Nurse Practitioner Family; Visit Provider Urology
DX: N20.0 Calculus of kidney (principal)
CPT/HCPCS: 74018

== ENCOUNTER 2024-10-05 14:58 | Outpatient (CLI) | payer OTHER, SELFPAY ==
[2024-10-05 15:51] LABS: Add Urine Microscopic? NO; Appearance Urine Clear (Clear); Bilirubin Urine Negative (Negative); Blood Urine Negative (Negative); Color Urine Yellow (Yellow); Glucose Urine UA Negative (Negative); Ketones Urine Negative (Negative); Leukocyte Esterase Ur Negative LEU/UL (Negative); Nitrate Urine Negative (Negative); Protein Urine Negative (Negative); Specific Grav Ur 1.018 (1.001-1.035); pH Urine 6.5 (5.0-9.0)
[2024-10-05 16:00] LABS: Partial Thromboplastin Time 27.3 Seconds (22.3-36.8); Prothrombin Time 13.1 Seconds (11.1-14.7)
== END 2024-10-05 14:59 | disposition home or self-care (01) ==
LOC: ANHSURGERY 14:59
PROVIDERS: PCP Nurse Practitioner Family; Visit Provider Urology
DX: N20.0 Calculus of kidney (principal)
CPT/HCPCS: 36415; 81003; 85610; 85730

== ENCOUNTER 2024-10-06 00:36 | Day surgery (SDC) | payer OTHER, SELFPAY ==
[2024-10-02 14:52] VITALS: BMI 32.1
--- NOTE | 2024-10-02 14:54 | SUR.PREOP ---
Report to the Outpatient Waiting Room, entrance under the green pavilion located off [facility], at time ___1000___ on date ____10/06/24__. Planned Procedure Time: ___1200__.? Time changes happen often and if your time is changed the preop area will call you the afternoon before. - You and your visitor will be asked to self-screen and do not enter if you have any COVID symptoms. Please call surgeon if you need to reschedule. - A mask is optional within the hospital at this time. Patients may have clear liquids (water, carbonated beverages, clear teas, apple juice) until 3 hours prior to surgery with a maximum of 20 ounces. - No food from midnight until time of surgery and no smoking, or chewing tobacco (or any form of nicotine). No chewing gum, candy or mints. - Infants may have breast milk until 4 hours before surgery, infant formula 6 hours prior to surgery. - Children will be allowed to drink immediately following surgery.? If applicable, please bring a bottle or sippy cup to assist with drinking. Juice, water, soda, and popsicles are readily available.? For infants on formula, please bring formula the day of surgery.? Pacifiers are allowed. Take only the following medications with a SIP of water on the morning of surgery: None DO NOT STOP ANY OF YOUR OTHER PRESCRIPTION MEDICATIONS PRIOR TO SURGERY EXCEPT THE FOLLOWING Hold all vitamins and supplements for 3 days per anesthesiologist. Medications to discontinue per physician none Please no make-up, nail costa rican, hairspray, perfume, deodorant, or body powder the day of surgery.? No jewelry (including any body piercings) or valuables the day of surgery, leave them at home.? Please take a shower or bath the night before, or the morning of, surgery with an antibacterial soap.? Wear comfortable, loose fitting clothing.? Children are encouraged to wear pajamas. - Jewelry must be removed prior to entering the operating room.? Rings and piercings that are not removed may be cut off. - The hospital will not accept responsibility for valuables.? - Please leave all valuables, including medications, at home the day of surgery. If you are going home after surgery, a licensed driver education instructor must drive you home.? - NO public transportation without another adult if you receive anesthesia. - We recommend that an adult stay with you for 24 hours following discharge. - We also recommend that you do not drive, make important decision, drink alcoholic beverages, or take any drugs that were not prescribed by your health care provider for at least 24 hours after your discharge time. For Pediatric surgeries, we recommend two adults accompany the child home. Follow any additional instructions given to you from your surgeon. Telephone instructions given to Cheko____and asked if any additional questions and then verbalized understanding. Patient advised to call surgeon office or pre surgery nurse liaison [phone] if any additional questions.
[2024-10-06] VITALS (7 sets, daily range): BP systolic 108–132; BP diastolic 71–101; PULSE 54–80; RESP 14–18; TEMP 37–37.1; O2SAT 97–100
--- NOTE | ~2024-10-06 | XR_ITS ---
XR abdomen/kub 1V Ordering provider: Cheko Ruckre MD History: . ESWL . Comparison: None. FINDINGS: BOWEL: Nonobstructive bowel gas pattern. ORGANOMEGALY: None. SIGNIFICANT PATHOLOGIC CALCIFICATIONS: Tiny left kidney stones. Stone in the right kidney mid pole. U nchanged from previous examination.. OTHER: No free air is seen under the diaphragm. IMPRESSION: NO ACUTE ABDOMINAL FINDINGS. Bilateral kidney stones. Reviewed, dictated and finalized at location A.
--- NOTE | 2024-10-06 06:22 | WPDHPUPDATE1 ---
History and Physical Update Update Date/Time: 10/06/24 06:22 History and Physical has been reviewed, including an updated exam of the patient. There are NO changes in the patient's condition. Risks, benefits, and alternatives have been discussed and questions answered. Patient agrees to proceed with procedure.
--- NOTE | 2024-10-06 11:28 | P.PNAN_ITS ---
Anes - Initial Pre Proc Eval Procedure: Operation Date: 10/06/24 12:00 Proposed Procedures p Right Extracorporeal Shock Wave Lithotripsy - Cheko Rucker MD Date/Time: 10/06/24 11:28 Surgeon: Cheko Rucker MD Pre Op Diagnosis: right kidney stone Patient Data Age: 58 Gender: M Height: 1.8 m Weight: 102.7 kg Last Vital Signs Temp 37.1 C 10/06/24 11:12 Pulse 80 10/06/24 11:12 Resp 18 10/06/24 11:12 BP 132/101 H 10/06/24 11:12 Pulse Ox 99 10/06/24 11:12 O2 Del Method Room Air 10/06/24 11:12 Allergies Allergy/AdvReac Type Severity Reaction Status Date / Time No Known Allergies Allergy Verified 10/06/24 11:02 Home Medications ?Medication ?Instructions ?Recorded ?Confirmed ?Type potassium citrate 10 mEq (1,080 10 meq PO BID #60 tabs 12/17/23 10/02/24 Rx mg) tablet,extended release (Urocit-K 10) hydrocodone 5 mg-acetaminophen 325 1 - 2 tablet PO Q6H PRN pain #20 08/30/24 10/02/24 Rx mg tablet tabs zolpidem 10 mg tablet 10 mg PO QHS PRN insomnia #90 tabs 09/05/24 10/02/24 Rx lisinopril 20 mg tablet 20 mg PO DAILY #90 tabs 09/06/24 10/06/24 Rx Patient hx anesthesia problems: none Family hx anesthesia problems: none Results Review: All pre-operative results and documents have been reviewed as part of the pre- operative evaluation. [facility] Past Medical History Medical History Otitis media Screening for thyroid disorder Encounter for screening for malignant neoplasm of prostate Screening cholesterol level History of kidney stones Annual physical exam Deviated septum AMI (obstructive sleep apnea) Obesity Surgical History Surgical History History of colonoscopy 2016 H/O lithotripsy Hx of cystoscopy H/O mastoidectomy Family History Family History Mother Breast cancer Diabetes mellitus Sibling Hypertension Social History Social History Social History: 02/29/24 very confident with medical forms Smoking status: Never smoker Alcohol intake: current Drinks per week: 1 Alcohol use details: RARE Substance use: never Substance use type: does not use Do You Feel Safe in your Home?: Yes Lack of Transportation: No Lack of Food: Never True Current Housing: I Have Housing Concerned About Future Housing: No Difficulty Paying Gas/Electric Bills: No Difficulty Paying for Meds: No Currently Unemployed: No Education: Master's Degree or Higher Difficulty w/ Childcare or Family Care: No Living arrangements: with family Additional living arrangements comments: [place] Occupation/Education: occupation Additional occupation/education comments: [employer] Gender identity (if verbalized by the patient): Male Spiritual care concerns: No Agree to blood products: Yes Anes - Eval Final PreProcedure Day of Procedure 10/06/24 11:28 Patient weight: obese Heart: regular rate and rhythm Lungs: clear to auscultation Airway: Mallampati scale class III Neurological: alert and oriented Last oral intake: >/= 8 hours ASA classification: III Emergent: no Anesthetic plan: proceed Anesthesia type and monitoring: general LMA and standard monitoring Results Review: All pre-operative results and documents have been reviewed as part of the pre- operative evaluation. Informed Consent: The patient's anesthetic plan and its attendant risks and benefits were discussed with the patient/family/POA. Questions were solicited and answers provided to the satisfaction of the patient/family/POA.
[2024-10-06] MEDS: ceFAZolin 2 GM/D5W 50 ML 2 GM/50 ML BAG IVPB (11:33)
--- NOTE | 2024-10-06 12:02 | W.PM.PROC2 ---
Procedure Note - Detailed Date of Procedure 10/06/24 Pre-op Diagnosis Right kidney stone Post-op Diagnosis Same Procedure Performed Right ESWL Surgeon Cheko Rucker MD Anesthesia General Description of Procedure The patient was brought to the operative suite where he was placed in the supine position on the Dornier lithotripsy table. The focal point of the lithotripter was placed at a 6-7mm right renal calculus. A total of 2500 shocks were delivered at a power setting of 4. There appeared to be good fragmentation of the stone. The patient tolerated the procedure well and was taken to the recovery room in good condition. Drains No Packing No Pathology None sent Complications No immediate complications Condition Stable
[2024-10-06] MEDS: LACTATED RINGERS 1,000 ML 30 ML IV CONT (12:15)
== END 2024-10-06 13:27 | disposition home or self-care (01) ==
PROVIDERS: PCP Nurse Practitioner Family; Visit Provider Urology
PROC: (CPT 50590; principal; 2024-10-06 12:00)
DX: N20.0 Calculus of kidney (principal); G47.33 Obstructive sleep apnea (adult) (pediatric); E66.9 Obesity, unspecified; Z68.31 Body mass index [BMI] 31.0-31.9, adult; Z79.891 Long term (current) use of opiate analgesic; Z98.890 Other specified postprocedural states; Z80.3 Family history of malignant neoplasm of breast
CPT/HCPCS: 50590; 74018; J0690; J2003; J2405; J2704; J3010; J7120

== ENCOUNTER 2024-10-31 15:03 | Outpatient (CLI) | payer OTHER, SELFPAY ==
--- NOTE | ~2024-10-31 | XR_ITS ---
XR abdomen/kub 1V 10/31/2024 17:04 Indication: Renal stone Procedure: KUB Comparison: 10/06/2024 Findings: There are bilateral renal stones. Bowel gas pattern nonobstructive. No acute osseous abnorm ality. There are pelvic phleboliths. No acute osseous abnormality. Impression: 1: Bilateral nephrolithiasis. Reviewed, dictated and finalized at location A. Impression: 1: Bilateral nephrolithiasis.
--- OUTSIDE RECORDS SUMMARY | 2024-10-31 15:08 | XMS_ITS | Clinical Summary ---
Author Organization [facility] Address [address] [place] [address] Care Team Providers Care Driller Operator Name Role Phone Rosa Lau Caterina ROSS-MANAGER POST Primary Care Provider Source Comments [facility],non-owned Affiliates and Associated Physician Practices is amultiple site organization consisting of ambulatory clinics and hospital sitesin [place], [place], [place] and [place]. This disclosure is being madepursuant to the Care Everywhere program and may not contain all information available regarding this patient. Last updated 17.[facility] Allergies No known active allergies Active Problems [...] season) 2023 DEPRESSION SCREENING 04/12/2024 INFLUENZA VACCINE (#1) 2024 HIB VACCINE Aged Out No longer [...] to complete this topic Insurance Care Teams Driller Operator Relationship Specialty Start Date End Date Rosa Lau, MANAGER TRADING-MANAGER POST [address] [place] [address] PCP - General Nurse Practitioner Family 01/29/24
--- OUTSIDE RECORDS SUMMARY | 2024-10-31 15:08 | XMS_ITS | Clinical Summary ---
Author Organization [facility] Address [facility] [place] [address] Care Team Providers Care Pot Annealer Name Role Phone Rosa Lau Caterina [facility] Primary Care Provider + Allergies No [...] 1:48 AM CDT Height 180.3 cm (5' 11) 01/29/2024 1:45 AM CDT Body Mass Index 32.29 01/29/2024 1:45 AM CDT Plan of Treatment Health Maintenance Due Date Last Done Comments Colorectal Cancer Screening Colonoscopy (10 Years) 1964 Annual Physical 12/03/1967 Hepatitis C 1982 Pneumococcal Vaccine: 50+ Years (1 of 1 - PCV) 2014 COVID-19 Vaccine (3 - 2023-2 5 season) 2023 07/16/2020, 06/25/2020 Zoster Vaccines (2 of 2) 01/26/2024 12/01/2023 DTaP, Tdap and Td Vaccines ( 2 [...] to complete this topic Insurance Care Teams Pot Annealer Relationship Specialty Start Date End Date Rosa Lau, LIFTS AND CRANES INSPECTOR- [address] [place] [address] PCP - General Nurse Practitioner Family 01/29/24
--- OUTSIDE RECORDS SUMMARY | 2024-10-31 15:08 | XMS_ITS | Encounter Summary ---
Author Organization [facility] Address [address] [place] [address] Care Team Providers Care Formation Testing Operator Name Role Phone Rosa Lau Primary Care Provider Encounter Details Date Type Department Care Team (Late st Contact Info) Description 01/29/2024 Ophth Exam [facility] - Ophthalmology [address] [place] [id number] Avery Mustafa MD [address] [place] [address] Social History Tobacco Use Types Packs/Day Years [...] on filedocumented in this encounter Care Teams Formation Testing Operator Relationship Specialty Start Date End Date Rosa Lau APRN-CNP [address] [place] [phone] PCP - General Nurse Practitioner Family 01/29/24 documented as of this encounter
== END 2024-10-31 15:04 | disposition home or self-care (01) ==
LOC: ANHIMG 15:05
PROVIDERS: PCP Nurse Practitioner Family; Visit Provider Urology
DX: N20.0 Calculus of kidney (principal)
CPT/HCPCS: 74018